=== PATIENT | male | born 1945 | race Caucasian/White ===

== ENCOUNTER 2016-11-21 18:34 | Inpatient (IN) ==
[2016-11-21] MEDS ORDERED: DUONEB (A & A) INH ONE ×2 (18:54→22:07)
[2016-11-21] MEDS ORDERED: ASPIRIN PO STA (19:54)
[2016-11-21 20:30] LABS: BASO% 0.2 % (0.0-0.8); EOS# 0.23 X1000 (0.0-0.7); EOS% 0.9 % (0.0-10.0); HEMATOCRIT 31.8 % (42.0-52.0); HEMOGLOBIN 9.7 g/dL (14.0-18.0); IMM GRAN% 0.4 % (0.0-0.5); LYMPH# 2.13 X1000 (1.2-3.4); MANUAL DIFF NEEDED? NO; MCH 27.2 PG (27-31); MCHC 30.5 g/dL (33-37); MCV 89.3 FL (81-99); MONO# 1.63 X1000 (0.11-0.59); MONO% 6.1 % (1.7-9.3); MPV 10.8 FL (7.4-10.4); NEUT% 84.4 % (42.2-75.2); PLT 272 X1000 (130-400); RBC 3.56 XMIL (4.7-6.1)
[2016-11-21 20:36] LABS: INR 1.08; PROTIME 11.4 Seconds (9.2-11.7); PTT 33.5 Seconds (22.0-36.0)
[2016-11-21 20:40] LABS: AGAP 13; ALBUMIN 3.2 g/dL (3.5-5.0); ALKALINE PHOSPHATASE 106 U/L (32-122); BUN 14 mg/dL (8-22); CALCIUM 8.8 mg/dL (8.8-10.2); CHLORIDE 93 mmol/L (98-107); CK PROFILE 41 U/L (24-204); COSMO 268; GOT 38 U/L (10-34); GPT 32 U/L (10-44); MAGNESIUM 1.9 mg/dL (1.5-2.7); POTASSIUM 4.3 mmol/L (3.5-5.1); SODIUM 134 mmol/L (136-145); TCO2 28 mmol/L (25-35); TOTAL BILIRUBIN 0.38 mg/dL (0.20-1.00); TOTAL PROTEIN 8.1 g/dL (6.3-8.3)
[2016-11-21] MEDS ORDERED: ROCEPHIN 1 GM/NS 1 GM/50 ML IVPB IV ONE (22:03)
[2016-11-21 22:09] LABS: URINE CULTURE NEEDED? NO; URINE MICRO REVIEW NEEDED? NO; URINE SOURCE CLEAN CATCH
[2016-11-21 22:13] LABS: BILIRUBIN URINE NEGATIVE (NEGATIVE); BLOOD URINE NEGATIVE (NEGATIVE); COLOR YELLOW; GLUCOSE URINE NEGATIVE (NEGATIVE); LEUKOCYTES URINE NEGATIVE (NEGATIVE); NITRITE URINE NEGATIVE (NEGATIVE); PROTEIN URINE 30 mg/dL (NEGATIVE); SP GRAVITY URINE 1.016; TURBIDITY URINE CLEAR (CLEAR); UROBILINOGEN URINE NORMAL (NORMAL)
[2016-11-21 22:14] LABS: UR EPITHELIAL CELLS <10 /HPF (<10); URINE BACTERIA NEGATIVE /HPF; URINE RBC <10 /HPF (<10); URINE WBC <10 /HPF (<10)
--- NOTE | 2016-11-21 22:22 | PROVIDER DOCUMENTATION ---
This chart was entered by Marleny Estrada Scribe, acting as scribe for Kwaku Zepeda MD. HPI-Respiratory General - General Chief Complaint: Shortness of Breath Stated Complaint: SOB Time Seen by Provider: 11/21/16 18:59 Source: patient Allergies/Adverse Reactions: Patient Allergies Allergy/AdvReac Type Severity Reaction Status Date / Time ciprofloxacin [From Cipro] AdvReac Severe SEIZURES Verified 11/21/16 18:47 doxycycline AdvReac Severe SEIZURES Verified 11/21/16 18:47 Home Medications: Home Medication List Medication Instructions Recorded Confirmed Last Taken Type Aspirin EC 325 mg PO QAM 03/10/15 11/21/16 09/25/16 History Albuterol [Albuterol Neb] 2.5 mg INH RTQ4H 07/16/15 11/21/16 09/25/16 History PRAVAstatin [Pravachol] 40 mg PO QHS 11/10/15 11/21/16 09/25/16 History Albuterol Sulfate [Proair Hfa] 8.5 gm IH 3-4XDAY PRN PRN #1 04/15/16 11/21/16 Rx [email or web address] Omeprazole [Prilosec] 40 mg PO DAILY@0700 #60 capsule 09/20/16 11/21/16 Rx Tamsulosin [Flomax] 0.4 mg PO DAILY #30 capsule 09/20/16 11/21/16 09/25/16 Rx Amlodipine [Norvasc] 5 mg PO BID #120 tablet 09/30/16 11/21/16 Unknown Rx Hydrocodone/Acetaminophen [[place] 7.5 mg PO Q4HR PRN #20 tablet 09/30/16 Unknown Rx 7.5-325 Tablet] - History of Present Illness-Resp Nature of Presenting Problem: 71 year old M presents to the ED with a cc of chills, cough, and headache x3 days. PT states that he has been taking Tylenol with no relief. PT states that he has some SOB with exertion but is chronic. PT states that he has a hx of CHF. Severity in ED: reports: mild Onset/Duration: reports: 3 days ago Timing: reports: still present Exposure: reports: unknown cause Cough Quality/Degree: reports: moderate, productive cough Current Respiratory Medication Therapy: Initiated see nurses note Associated Symptoms: reports: cough, fever/chills, headache, shortness of breath Similar Symptoms Previously?: Yes Recently seen or treated by another doctor?: No Review of Systems - Adult - REVIEW OF SYSTEMS - ADULT Constitutional: reports: chills. denies: fever Eyes: reports: no symptoms reported Ears, Nose, Mouth & Throat: reports: no symptoms reported Cardiovascular: denies: chest pain, palpitations Respiratory: reports: cough, shortness of breath Gastrointestinal: reports: no symptoms reported Genitourinary: reports: no symptoms reported Musculoskeletal: reports: no symptoms reported Integumentary: reports: no symptoms reported Neurological: reports: headache/migraines. denies: dizziness/vertigo Psychiatric: reports: no symptoms reported Endocrine: reports: no symptoms reported Hematologic/Lymphatic: reports: no symptoms reported Allergic/Immunologic: reports: no symptoms reported All Other Systems: Reviewed and Negative Past History - Adult - PAST MEDICAL HISTORY-ADULT Review of Records: reports: Nursing Assessment Review, Medications Reviewed Major Childhood Illnesses: reports: denies history Cardiovascular: reports: cardiac disease, CAD, CHF, HTN, hyperlipidemia, [place] Respiratory: reports: asthma, COPD (on home o2 saturation), sleep apnea Musculoskeletal: reports: arthritis, chronic pain Neurological: reports: Seizures/Epilepsy Endocrine/Immune: reports: Diabetes Other Conditions: reports: MRSA, psoriasis Additional History: Freq ER visits for COPD; 2L of O2 13/03 dependent - PRIOR SURGERIES/PROCEDURES Surgical/Procedure History: reports: appendectomy, cardiac stent, other - IMMUNIZATION STATUS Childhood Immunizations: See Nurse Assessment Flu Vaccine: See Nurse Assessment - FAMILY HISTORY Family History: reviewed, not pertinent - SOCIAL HISTORY Smoking: chew Provider spent 3-5 mins advising pt. on dangers of tobacco.: Discussed manners to quit use, and f/u contacts for add'l counseling. Substance Use: none/never Alcohol Use Frequency: never Physical Exam-General - PHYSICAL EXAM-ADULT Initial Vital Signs Reviewed: Yes - CONSTITUTIONAL General Appearance: appears well, alert, no apparent distress - EYES Eyes: PERRL/EOMI, pink conjunctivae - RESPIRATORY Respiratory: chest non-tender, rales, wheezing - CARDIOVASCULAR Cardiovascular: normal peripheral pulses, regular rate, rhythm, no edema - GASTROINTESTINAL (ABDOMEN) Abdominal Exam: non tender, soft - SKIN Integumentary: normal color, normal turgor, warm/dry - PSYCHIATRIC Psych/Mental Status: normal mood/affect, normal thought content, normal thought process, oriented x 3 Progress - PLAN OF CARE/RESULTS Progress/Plan/Lab Results: Vital Signs - 8 hr 11/21/16 18:43 11/21/16 19:58 Temperature 97.6 F Pulse Rate 108 H 101 H Respiratory Rate 21 18 Blood Pressure 164/81 O2 Sat by Pulse Oximetry 98 Laboratory Results - last 24 hr 11/21/16 11/21/16 11/21/16 19:00 19:00 19:00 WBC 26.71 H RBC 3.56 L Hgb 9.7 L Hct 31.8 L MCV 89.3 MCH 27.2 MCHC 30.5 L RDW Std Deviation 13.8 Plt Count 272 MPV 10.8 H Immature Gran % (Auto) 0.4 Neut % (Auto) 84.4 H Lymph % (Auto) 8.0 L [place] % (Auto) 6.1 Eos % (Auto) 0.9 Baso % (Auto) 0.2 Immature Gran # (Auto) 0.10 H Neut # (Auto) 22.57 H Lymph # (Auto) 2.13 [place] # (Auto) 1.63 H Eos # (Auto) 0.23 Baso # (Auto) 0.05 PT INR PTT (Actin FS) D-Dimer 0.66 H Sodium 134 L Potassium 4.3 Chloride 93 L Carbon Dioxide 28 Anion Gap 13 BUN 14 Creatinine 0.9 Estimated GFR/1.73 m2 > 60 BUN/Creatinine Ratio 16 Glucose 86 Calculated Osmolality 268 Calcium 8.8 Magnesium 1.9 Total Bilirubin 0.38 AST 38 H ALT 32 Alkaline Phosphatase 106 Creatine Kinase 41 Troponin T Rho-X-Nyvwworqvgk Pept Total Protein 8.1 Albumin 3.2 L Globulin 4.9 Albumin/Globulin Ratio 0.7 Urine Source Urine Color Urine Turbidity Urine pH Ur Specific [place] Urine Protein Ur Glucose (Stick) Ur Ketones (Stick) Urine Blood Urine Nitrite Urine Bilirubin Urobilinogen Dipstick Urine Leukocytes Urine WBC (Auto) Urine RBC (Auto) U Epithel Cells (Auto) Urine Bacteria (Auto) 11/21/16 11/21/16 11/21/16 19:00 19:00 19:00 WBC RBC Hgb Hct MCV MCH MCHC RDW Std Deviation Plt Count MPV Immature Gran % (Auto) Neut % (Auto) Lymph % (Auto) [place] % (Auto) Eos % (Auto) Baso % (Auto) Immature Gran # (Auto) Neut # (Auto) Lymph # (Auto) [place] # (Auto) Eos # (Auto) Baso # (Auto) PT 11.4 INR 1.08 PTT (Actin FS) 33.5 D-Dimer Sodium Potassium Chloride Carbon Dioxide Anion Gap BUN Creatinine Estimated GFR/1.73 m2 BUN/Creatinine Ratio Glucose Calculated Osmolality Calcium Magnesium Total Bilirubin AST ALT Alkaline Phosphatase Creatine Kinase Troponin T < 0.010 Gvn-Z-Fwwthlqiryg Pept 956 H Total Protein Albumin Globulin Albumin/Globulin Ratio Urine Source Urine Color Urine Turbidity Urine pH Ur Specific [place] Urine Protein Ur Glucose (Stick) Ur Ketones (Stick) Urine Blood Urine Nitrite Urine Bilirubin Urobilinogen Dipstick Urine Leukocytes Urine WBC (Auto) Urine RBC (Auto) U Epithel Cells (Auto) Urine Bacteria (Auto) 11/21/16 22:00 WBC RBC Hgb Hct MCV MCH MCHC RDW Std Deviation Plt Count MPV Immature Gran % (Auto) Neut % (Auto) Lymph % (Auto) [place] % (Auto) Eos % (Auto) Baso % (Auto) Immature Gran # (Auto) Neut # (Auto) Lymph # (Auto) [place] # (Auto) Eos # (Auto) Baso # (Auto) PT INR PTT (Actin FS) D-Dimer Sodium Potassium Chloride Carbon Dioxide Anion Gap BUN Creatinine Estimated GFR/1.73 m2 BUN/Creatinine Ratio Glucose Calculated Osmolality Calcium Magnesium Total Bilirubin AST ALT Alkaline Phosphatase Creatine Kinase Troponin T Miy-H-Barytqjzkpl Pept Total Protein Albumin Globulin Albumin/Globulin Ratio Urine Source CLEAN CATCH Urine Color YELLOW Urine Turbidity CLEAR Urine pH 6.0 Ur Specific [place] 1.016 Urine Protein 30 A Ur Glucose (Stick) NEGATIVE Ur Ketones (Stick) NEGATIVE Urine Blood NEGATIVE Urine Nitrite NEGATIVE Urine Bilirubin NEGATIVE Urobilinogen Dipstick NORMAL Urine Leukocytes NEGATIVE Urine WBC (Auto) <10 Urine RBC (Auto) <10 U Epithel Cells (Auto) <10 Urine Bacteria (Auto) NEGATIVE Orders Category Date Time Status Oxygen Therapy- ED Nursing DIRECTED Care 11/21/16 18:54 Active Saline Loc DIRECTED Care 11/21/16 18:54 Active ANGIOGRAM/PULMONARY ARTERIES [CT] Stat Exams 11/21/16 22:15 Ordered CHEST-PORTABLE [RAD] Stat Exams 11/21/16 20:19 Taken BLOOD CULTURE [BLDCUL] Stat Lab 11/21/16 22:02 Uncollected CBC WITH ELECTRONIC DIFF [HEME] Stat Lab 11/21/16 19:00 Completed CK PROFILE [SP CHEM] Stat Lab 11/21/16 19:00 Completed COMPREHENSIVE METABOLIC PANEL [CHEM] Stat Lab 11/21/16 19:00 Completed D-DIMER [CHEM] Stat Lab 11/21/16 19:00 Completed MAGNESIUM [CHEM] Stat Lab 11/21/16 19:00 Completed PRO B-NATRIURETIC PEPTIDE Stat Lab 11/21/16 19:00 Completed PROTIME WITH INR [COAG] Stat Lab 11/21/16 19:00 Completed PTT [COAG] Stat Lab 11/21/16 19:00 Completed TROPONIN T Stat Lab 11/21/16 19:00 Completed UA NIMS W/REFLEX CULT [URINALYSIS] Stat Lab 11/21/16 22:00 Completed Albuterol 2.5MG/Ipratrop 0.5MG [Duoneb (A & A)] Med 11/21/16 18:54 Discontinued 3 ml INH NOW ONE Albuterol 2.5MG/Ipratrop 0.5MG [Duoneb (A & A)] Med 11/21/16 22:07 Discontinued 3 ml INH NOW ONE CefTRIAXONE 1 GM/NS [Rocephin 1 gm/Ns] Med 11/21/16 22:03 Active 1 gm in 50 ml IV NOW Aerosol Treatments Routine Oth 11/21/16 18:55 Completed Aerosol Treatments Routine Oth 11/21/16 22:08 Active Aerosol Treatments Stat Oth 11/21/16 18:54 Completed Aerosol Treatments Stat Oth 11/21/16 18:55 Completed Aerosol Treatments Stat Oth 11/21/16 22:08 Active Pulse Oximetry Stat Oth 11/21/16 18:54 Active EKG [EKG] Stat Ther 11/21/16 18:40 Ordered Result Diagrams: 11/21/16 19:00 11/21/16 19:00 - EKG 1 Time of EKG reading by physician:: 18:43 EKG Read and Signed by:: Kwaku Zepeda EKG Interpretation (*Must complete 3 of following elements*): Abnormal Rate: 108 Rhythm: sinus tachycardia QRS: LVH - XRAY 1 XRAY Study: Chest Impression: Abnormal XRAY Interpretation: diffuse bronchiole thickening worsening on right:Dr. Zepeda(ER MD) - CONSULTS/PCP/HOSPITALIST Notification #1 *Consult/PCP/Hospitalist*: Dr. Fournier(hospitalist) Time Discussed: 22:12 Consult Disposition: Will see in ED, Admit Departure - Departure Time of Disposition Decision: 22:20 DIAGNOSIS: Bronchitis, SOB (shortness of breath) Leukocytosis (leucocytosis) Qualifiers: Leukocytosis type: bandemia Qualified Code(s): D72.825 - Bandemia Disposition: ADMITTED INPATIENT 09 Certified Medical Emergency: Emergent Condition: Fair Referrals and Follow-Ups: None,PCP [Primary Care Provider] - This chart was documented by the indicated scribe, (Marleny Estrada Scribe) and accurately reflects the services I performed and decisions made by me, Kwaku Zepeda MD, as attested by the provider's signature.
--- NOTE | 2016-11-21 23:52 | HISTORY AND PHYSICAL ---
CHIEF COMPLAINT: Chills, shaking and shortness of breath times several days. HISTORY OF PRESENTING ILLNESS: A 74-year-old male with a history of COPD on home oxygen, and hypertension, who presented to the emergency department with several days history of having some chills and shaking symptoms. He states that he was short of breath more than usual at this time, and subsequently had come to the emergency department. In the ER, he was evaluated. He was still somewhat dyspneic. He was put on supplemental oxygen. He had some in improvement after getting some nebulizer treatments, however, due to his presenting symptoms, it was thought that he would need hospitalization for further management. At the time of my examination, he had denied any headache, nausea, vomiting, diarrhea, chest pain, hemoptysis, melena, but complained of shortness of breath and having chills. PAST MEDICAL HISTORY: Includes COPD on 4 L of home oxygen and hypertension. PAST SURGICAL HISTORY: None. ALLERGIES: Doxycycline and Cipro. CURRENT MEDICATIONS: Listed in the MAR. SOCIAL HISTORY: He is a former smoker. Denies any history of alcohol or illicit drug use. FAMILY HISTORY: No history of coronary disease. REVIEW OF SYSTEMS: Twelve point systems is as in HPI. Other systems negative. PHYSICAL EXAMINATION: GENERAL: Cooperative, friendly male. He is resting more comfortably now. VITAL SIGNS: Temperature 97.6, pulse 108, respirations 21, blood pressure 164/81. HEENT: Atraumatic, normocephalic. Extraocular movements intact. PERRLA. NECK: No masses. CHEST: Rhonchi. CARDIOVASCULAR: Regular rate and rhythm. ABDOMEN: Soft. Positive bowel sounds. EXTREMITIES: No edema. NEURO: He is awake, alert, oriented x3. : No bladder distention. SKIN: Warm. LABORATORIES AND STUDIES: WBCs 26.71, hemoglobin 9.7, hematocrit 31.8, platelets 272,000. Sodium 134, potassium 4.3, chloride 93, CO2 of 28, BUN is 14, creatinine 0.9, glucose is 86. UA is leukocyte negative. ASSESSMENT: This is a 71-year-old male with a history of COPD on home oxygen and hypertension, who had presented to the emergency department with several days history of having shortness of breath and chills. It was suspected that he had infiltrates on chest x-ray, as per ER physician. Due to symptoms with elevated white count and having chills, it was thought that he would need hospitalization for further management. 1. Acute COPD exacerbation. 2. Suspected pneumonia. 3. Leukocytosis. 4. Hypertension. PLAN: 1. We will admit patient to medical floor with telemetry. 2. We will continue with DuoNebs. We will add Solu-Medrol. 3. We will check blood cultures, start patient on IV antibiotics. 4. We will monitor laboratories. 5. We will monitor blood pressure. Resume antihypertensive agents. 6. We will put patient on DVT prophylaxis with SCDs. 7. We will continue to follow and reassess. cc: Trevin Fournier MD
[2016-11-22] MEDS: DUONEB (A & A) INH SCH ×7 (01:25→22:54)
[2016-11-22] MEDS: ZITHROMAX 500 MG/NS 500 MG/250 ML IVPB IV SCH (02:36)
--- NOTE | 2016-11-22 05:35 | EKG Report ---
Test Performed on : 11/21/2016 6:43:32 PM Test Reason : CP Blood Pressure : / mmHG Vent. Rate : 108 BPM Atrial Rate : 108 BPM P-R Int : 194 ms QRS Dur : 100 ms QT Int : 336 ms P-R-T Axes : 076 053 088 degrees QTc Int : 450 ms Sinus tachycardia. Left ventricular hypertrophy with repolarization abnormality Inferior infarct (cited on or before 14-AUG-2016) Abnormal ECG When compared with ECG of 05-SEP-2016 14:59, premature ventricular complexes. are no longer present ST now depressed in Lateral leads T wave inversion now evident in Lateral leads Unconfirmed Result
[2016-11-22] MEDS: PRILOSEC PO SCH (06:01)
[2016-11-22 06:35] LABS: BASO% 0.2 % (0.0-0.8); EOS# 0.12 X1000 (0.0-0.7); EOS% 0.6 % (0.0-10.0); HEMATOCRIT 30.6 % (42.0-52.0); HEMOGLOBIN 9.4 g/dL (14.0-18.0); IMM GRAN# 0.06 X1000 (0.0-0.04); IMM GRAN% 0.3 % (0.0-0.5); LYMPH# 1.74 X1000 (1.2-3.4); MANUAL DIFF NEEDED? YES; MCH 27.5 PG (27-31); MCHC 30.7 g/dL (33-37); MCV 89.5 FL (81-99); MONO# 1.14 X1000 (0.11-0.59); MONO% 5.2 % (1.7-9.3); MPV 10.2 FL (7.4-10.4); NEUT% 85.7 % (42.2-75.2); PLT 262 X1000 (130-400); RBC 3.42 XMIL (4.7-6.1)
[2016-11-22 06:59] LABS: AGAP 10; BUN 12 mg/dL (8-22); CALCIUM 8.7 mg/dL (8.8-10.2); CHLORIDE 96 mmol/L (98-107); COSMO 269; POTASSIUM 3.7 mmol/L (3.5-5.1); SODIUM 135 mmol/L (136-145); TCO2 29 mmol/L (25-35)
[2016-11-22 07:26] LABS: LYMPHS 6 % (21-51); MONO 4 % (1-9)
--- NOTE | 2016-11-22 07:55 | Diag Imaging Result Document ---
PROCEDURE NAME: CHEST-PORTABLE - 11/21/2016 FRONTAL RADIOGRAPH OF THE CHEST, 2 VIEWS: COMPARISON: 09/26/2016. FINDINGS: The patient's right PICC line has been removed during the interval. There are stable COPD changes. There are stable patchy fibrotic changes. No definite new consolidation can be identified by plain radiograph. Cardiac silhouette is stable. IMPRESSION: Stable COPD changes and patchy fibrotic changes. No definite acute pathology by plain radiograph.
--- NOTE | 2016-11-22 08:21 | Diag Imaging Result Document ---
PROCEDURE NAME: ANGIOGRAM/PULMONARY ARTERIES - 11/21/2016 CT ANGIOGRAM OF PULMONARY ARTERIES WITH CONTRAST: Exam performed with intravenous contrast. A dose-reduction protocol was used. Axial and reformatted coronal images are obtained. COMPARISON: 05/09/2016. FINDINGS: There are no filling defects identified in the pulmonary arteries. There is no indication of aortic dissection. There are severe COPD/emphysematous changes. There is possibly mild bronchiectasis at the right base. There are scattered small patchy opacities which may relate to COPD exacerbation with mild bronchopneumonia. There is no pleural effusion or pneumothorax identified. There is a 1 cm nodular opacity or scar at the posterior right upper lobe which is stable. There are small and borderline mediastinal lymph nodes, some of which are slightly more prominent compared to previous exam, which may be reactive. IMPRESSION: 1. No evidence of pulmonary embolism. 2. Severe COPD/emphysematous changes. Patchy small infiltrates which may relate to COPD exacerbation with mild bronchopneumonia. The on-call radiologist provided preliminary results at 11:13 p.m. on 2016. MTDCheri
[2016-11-22] MEDS: ASPIRIN EC PO SCH (08:51)
[2016-11-22] MEDS: NORVASC PO SCH ×2 (08:51→20:52)
[2016-11-22] MEDS: FLOMAX PO SCH (08:51)
[2016-11-22] MEDS ORDERED: NORCO-7.5 PO PRN (11:48)
--- NOTE | 2016-11-22 12:08 | PROGRESS NOTE ---
DATE: 11/22/2016 SUBJECTIVE: The patient has no focal complaints. OBJECTIVE: Vital Signs: Blood pressure 115/56, heart rate of 81, respiratory rate of 22, temperature 97.7 degrees, satting 100% on 4 L. Cardiovascular: Regular rate and rhythm. Pulmonary: Bilateral breath sounds. Clear to auscultation. GI: Soft, nontender, nondistended. Bowel sounds are positive. Extremity exam: No clubbing or cyanosis. LABORATORY DATA: White count is down to 21. The rest of the electrolytes look okay. CTA shows bronchopneumonia in his right base, possibly bronchiectasis. PROBLEM LIST: 1. Bronchopneumonia, bronchiectasis. We will continue empiric antibiotics. Clinically, he has improved. Continue breathing treatments. Pulmonary toilet. 2. Chronic obstructive pulmonary disease exacerbation. Continue the same. He does not have a large amount of wheezing, so we have not maintained on steroids, although this may be needed additionally if he has not improved. 3. Hypertension. Continue regular medications. 4. Dyslipidemia. Continue regular medications. DISPOSITION: Pending his clinical course. cc: Gelacio Duque MD
[2016-11-22] MEDS: LOVENOX SUBQ SCH (13:57)
[2016-11-22] MEDS: NORCO-7.5 PO PRN ×3 (15:28→23:00)
[2016-11-22] MEDS: PRAVACHOL PO SCH (20:52)
[2016-11-22] MEDS: ROCEPHIN 1 GM/NS 1 GM/50 ML IVPB IV SCH (22:37)
[2016-11-23] MEDS: ZITHROMAX 500 MG/NS 500 MG/250 ML IVPB IV SCH (02:05)
[2016-11-23] MEDS: NORCO-7.5 PO PRN ×5 (02:46→23:32)
[2016-11-23] MEDS: DUONEB (A & A) INH SCH ×6 (03:23→23:10)
[2016-11-23] MEDS: PRILOSEC PO SCH (06:11)
[2016-11-23 07:56] LABS: HEMATOCRIT 27.1 % (42.0-52.0); HEMOGLOBIN 8.3 g/dL (14.0-18.0); MCH 27.9 PG (27-31); MCHC 30.6 g/dL (33-37); MCV 91.2 FL (81-99); MPV 10.2 FL (7.4-10.4); RBC 2.97 XMIL (4.7-6.1)
[2016-11-23 08:01] LABS: AGAP 10; BUN 18 mg/dL (8-22); CALCIUM 8.6 mg/dL (8.8-10.2); CHLORIDE 96 mmol/L (98-107); COSMO 269; POTASSIUM 3.6 mmol/L (3.5-5.1); SODIUM 134 mmol/L (136-145); TCO2 28 mmol/L (25-35)
[2016-11-23] MEDS: FLOMAX PO SCH (09:10)
[2016-11-23] MEDS: ASPIRIN EC PO SCH (09:10)
[2016-11-23] MEDS: NORVASC PO SCH ×2 (09:10→20:28)
[2016-11-23] MEDS: LOVENOX SUBQ SCH (12:20)
[2016-11-23] MEDS ORDERED: DUONEB (A & A) INH PRN (14:52)
--- NOTE | 2016-11-23 15:21 | PROGRESS NOTE ---
DATE: 11/23/2016 SUBJECTIVE: The patient has no focal complaints. Breathing is somewhat improved. OBJECTIVE: Vital Signs: Blood pressure 123/57, heart rate of 81, respiratory rate 16, temperature 97.5 degrees. Cardiovascular: Regular rate and rhythm. Pulmonary: Bilateral breath sounds with wheezing. GI: Soft, nontender, nondistended. Bowel sounds are positive. LABORATORY DATA: Normal CBC. White count is down, hemoglobin and hematocrit 8 and 27. PROBLEM LIST: 1. Chronic obstructive pulmonary disease exacerbation. We will continue breathing treatments. He has not really on any steroids. He does have a little bit of wheezing on exam. We will continue to monitor. 2. Pneumonia. He is on Rocephin and azithromycin, day 2 of both of those. 3. Hypertension. Appears to be stable on current medications. 4. Dyslipidemia. Continue regular medications. DISPOSITION: Difficult social situation. Home health is not an option. Apparently there are barriers to home health workers to be able to help him. Home health nursing because of guard dog in the house and possible drug abuse in the house, but the patient's states he does not have a home to go back to and requesting looking into some rehab options. He was just in rehab and essentially just came right back in unfortunately. In any case, clinically the patient is stable. We will look into discharge planning and follow. cc: Gelacio Duque MD
--- NOTE | 2016-11-23 17:13 | PALLIATIVE CARE CONSULTATION ---
DATE: 11/23/2016 REQUESTING PHYSICIAN: Karina Deleon. REASON FOR CONSULTATION: Goals of care. HISTORY OF PRESENT ILLNESS: This is a 71-year-old, male with a past medical history of COPD requiring home O2, and hypertension. He was most recently admitted on 11/22/2016 after presenting to the emergency department with complaints of progressive shortness of breath, cough and chills. Mr. Byrne has had multiple inpatient admissions for COPD exacerbation within the last year. His is currently at bedside. Mr. Byrne also admits to a roughly 50 pound weight loss within the last 6 months. However he states that his appetite is good. He states that functionally he feels like he is getting weaker. He states he has to take multiple breaks when performing his activities of daily living, but he is able to continue to do perform those independently. Currently Mr. Byrne continues to complain of shortness of breath. He states it has improved since admission. He complains of pain that he describes as arthritis. He denies nausea, anxiety or depression. Currently he and his state that one of their major concerns is that they are now homeless. They have been living in a local motel, but state that the time that they have paid for there is now up. They also state that they do not have a vehicle, and it is unsure where they will go once they are discharged from the hospital. The palliative care team was consulted to assist with goals of care. REVIEW OF SYSTEMS: A 12 point review of systems has been conducted and otherwise negative except as mentioned in the HPI. PAST MEDICAL HISTORY: 1. COPD requiring home O2. 2. Hypertension. SURGICAL HISTORY: None. SOCIAL HISTORY: Prior to this admission Mr. Byrne was living in a local motel, which he is now unable to go back to. Alcohol and drug use have been denied. He does admit to use of smokeless tobacco. He is and has 1 son whom he has not seen since he was an . FAMILY HISTORY: None pertinent. PHYSICAL EXAMINATION: General: This is a 71-year-old, male who does not appear to be in any acute distress. HEENT: Atraumatic, normocephalic. Neck: Trachea is midline. Cardiovascular: Regular rate and rhythm. Pulmonary: Respirations are nonlabored. Lung: Sounds reveal scattered wheeze. Abdomen: Soft. Bowel sounds are active. Extremities: Pulses are palpable. No edema noted. Neuro: Mr. Byrne is awake and alert. He is oriented to person, place and time. Skin: Warm and dry. IMPRESSION: This is a 71-year-old, male with a past medical history as listed above in the HPI. The palliative care team was consulted to assist with goals of care. Mr. Byrne has had multiple admissions for COPD exacerbations within the last 6 months. I do feel like Mr. Byrne would benefit from some home services. However that has been complicated due to their change in living situation. I discussed the power of attorney lawyer and advance directive with Mr. Byrne's . He does not have either document. He does wish to be a full code. It does appear that Mr. Byrne's Palliative Performance Scale is 70%. The palliative care team will continue to follow as needed. Thank you for this consultation. Dictated by QING Cervantes for Shantanu Rodriguez MD cc: QING Cervantes MD
[2016-11-23] MEDS ORDERED: ZOFRAN IV PRN (18:59)
[2016-11-23] MEDS: PRAVACHOL PO SCH (20:28)
[2016-11-23] MEDS: ROCEPHIN 1 GM/NS 1 GM/50 ML IVPB IV SCH (21:04)
[2016-11-24] MEDS: ZITHROMAX 500 MG/NS 500 MG/250 ML IVPB IV SCH (01:24)
[2016-11-24] MEDS: DUONEB (A & A) INH SCH ×3 (03:07→11:24)
[2016-11-24 05:33] VITALS: BP 126/63
[2016-11-24] MEDS: NORCO-7.5 PO PRN (06:11)
[2016-11-24] MEDS: PRILOSEC PO SCH (06:12)
[2016-11-24 07:22] LABS: HEMATOCRIT 29.6 % (42.0-52.0); MCH 27.4 PG (27-31); MCHC 30.4 g/dL (33-37); MCV 90.2 FL (81-99); RBC 3.28 XMIL (4.7-6.1)
[2016-11-24 07:35] LABS: AGAP 12; BUN 16 mg/dL (8-22); CHLORIDE 96 mmol/L (98-107); COSMO 274; POTASSIUM 4.1 mmol/L (3.5-5.1); SODIUM 137 mmol/L (136-145); TCO2 29 mmol/L (25-35)
[2016-11-24] MEDS: ASPIRIN EC PO SCH (09:06)
[2016-11-24] MEDS: FLOMAX PO SCH (09:06)
[2016-11-24] MEDS: NORVASC PO SCH (09:06)
[2016-11-24] MEDS: LOVENOX SUBQ SCH (11:34)
--- NOTE | 2016-11-24 11:42 | DISCHARGE SUMMARY ---
ADMISSION DATE: 11/22/2016 DISCHARGE DATE: CONSULTATIONS: None. PERTINENT PROCEDURES: Pulmonary arteriogram showed no evidence of pulmonary embolus, severe chronic obstructive pulmonary disease, emphysematous changes. Patient has small infiltrates which may relate to chronic obstructive pulmonary disease exacerbation with mild bronchopneumonia. CONSULTATIONS: Lisa Steele with palliative care. DISCHARGE DIAGNOSES: 1. Acute chronic obstructive pulmonary disease exacerbation, stable. Continue on home O2, as well as bronchodilators. 2. Pneumonia. Continue with p.o. antibiotics. 3. Hypertension. Stable. 4. Dyslipidemia. Continue patient's statin. HOSPITAL COURSE: Briefly, Mr. Byrne is a 74-year-old male, well known to our service. Past medical history includes chronic obstructive pulmonary disease on 4 L home O2, hypertension, hyperlipidemia, who presented to the emergency department with several days history of having chills and shaking symptom, shortness of breath that was more than his usual. He was evaluated in the emergency department . He was found to be somewhat dyspneic. He had some improvement after nebulizer treatments; however, due to his presenting symptoms the patient was admitted for chronic obstructive pulmonary disease exacerbation as well as pneumonia. He was admitted to the medical telemetry floor. Continued on bronchodilators, as well as IV steroids, IV antibiotics, and supplemental O2. Due to the patient's history, as well as several admissions over the last year, palliative services was consulted for goals of care. [facility] was also consulted to help with placement, due to the patient complaining of generalized weakness, as well as weight loss. Upon further investigation by him, as well as his , had been living in a local motel, but at this time what they have paid up for is now. They do not have a vehicle. They were unsure as to where they will go once discharged from the hospital. Again, due to the patient's weakness, PT was involved and they do recommend rehab. The patient has been accepted back to [facility], for which he had just came upon his last admission. The patient does not use cigarettes, but he still uses smokeless tobacco. We did feel that he would benefit from in-home services; however, that has been complicated due to their change in living situation and again the patient is appropriate for rehab and he will be discharged to [facility] today. VITAL SIGNS: Vital signs at time of discharge, temperature is 97.9 degrees, heart rate 79, respirations 20, blood pressure is 126/63. O2 is 98% on 3 L nasal cannula. DISCHARGE DIET: Healthy heart. DISCHARGE MEDICATIONS: 1. Albuterol nebulizer 2.5 mg inhaled q.4 hours. 2. ProAir 8.5 g inhaled 3-4 times a day p.r.n. for shortness of breath. 3. Norvasc 5 mg p.o. b.i.d. 4. Aspirin 325 mg p.o. q.a.m. 5. [place]um 7.5/325 p.o. q.4 hours p.r.n. pain. 6. Prilosec 40 mg p.o. daily. 7. Pravachol 40 mg p.o. at bedtime. 8. Flomax 0.4 mg p.o. daily. 9. Medrol dose pack. FOLLOWUP: The patient is being discharged to [facility]. The patient continues to take a full course of antibiotics, as well as his Medrol dose pack, as well as continuing his home medications and continuing on his supplemental O2. The patient can return to the emergency department for any worsening of symptoms. DISCHARGE TIME: Thirty-minutes. Dictated by QING Oliveros for David Bhatia MD cc: David Bhatia MD
== END 2016-11-24 13:41 ==
LOC: ED 18:34 → 3N 11-22 00:37 → SUATTDRO 11-22 00:37
PROVIDERS: ATTEND Emergency Medicine

== ENCOUNTER 2016-12-20 15:10 | Inpatient (IN) ==
[2016-12-20] MEDS ORDERED: ASPIRIN PO STA (15:33)
[2016-12-20 15:51] LABS: MANUAL DIFF NEEDED? NO
[2016-12-20 15:54] LABS: BASO% 0.4 % (0.0-0.8); EOS# 0.76 X1000 (0.0-0.7); EOS% 5.7 % (0.0-10.0); HEMATOCRIT 35.4 % (42.0-52.0); HEMOGLOBIN 10.6 g/dL (14.0-18.0); IMM GRAN# 0.03 X1000 (0.0-0.04); IMM GRAN% 0.2 % (0.0-0.5); LYMPH# 1.63 X1000 (1.2-3.4); LYMPH% 12.2 % (20.5-51.1); MCH 26.8 PG (27-31); MCHC 29.9 g/dL (33-37); MCV 89.6 FL (81-99); MONO# 1.52 X1000 (0.11-0.59); MONO% 11.3 % (1.7-9.3); MPV 10.2 FL (7.4-10.4); NEUT% 70.2 % (42.2-75.2); PLT 359 X1000 (130-400); RBC 3.95 XMIL (4.7-6.1)
[2016-12-20 16:06] LABS: INR 1.04; PTT 30.6 Seconds (22.0-36.0)
[2016-12-20 16:11] LABS: AGAP 8; ALBUMIN 3.5 g/dL (3.5-5.0); ALKALINE PHOSPHATASE 127 U/L (32-122); BUN 23 mg/dL (8-22); CALCIUM 9.2 mg/dL (8.8-10.2); CHLORIDE 96 mmol/L (98-107); CK PROFILE 26 U/L (24-204); COSMO 282; GOT 83 U/L (10-34); GPT 65 U/L (10-44); MAGNESIUM 2.2 mg/dL (1.5-2.7); POTASSIUM 3.5 mmol/L (3.5-5.1); SODIUM 139 mmol/L (136-145); TCO2 35 mmol/L (25-35); TOTAL BILIRUBIN 0.21 mg/dL (0.20-1.00); TOTAL PROTEIN 8.3 g/dL (6.3-8.3)
--- NOTE | 2016-12-20 16:48 | Diag Imaging Result Document ---
PROCEDURE NAME: CHEST-2 VIEWS - 12/20/2016 CHEST 2 VIEWS: COMPARISON: 12/15/2016. FINDINGS: Heart size is normal. There are COPD changes with hyperexpanded lungs. There are mild infiltrates or scarring at the bilateral bases which appear grossly stable. There is a possible tiny right pleural effusion. There is no evidence of pneumothorax. IMPRESSION: COPD changes with hyperexpanded lungs. Stable mild basilar infiltrates or scarring. Possible tiny right pleural effusion. No evidence of pneumothorax.
[2016-12-20] MEDS ORDERED: DUONEB (A & A) INH ONE (19:27)
[2016-12-20] MEDS ORDERED: DECADRON IV ONE (19:27)
[2016-12-20] MEDS ORDERED: ROCEPHIN 1 GM/NS 1 GM/50 ML IVPB IV ONE (19:28)
[2016-12-20] MEDS ORDERED: LASIX IV ONE (19:38)
[2016-12-20 21:07] LABS: ALLEN TEST YES; BE 7.8 mmoll (-3.0-3.0); BLOOD TYPE ARTERIAL; DRAW SITE R BRACHIAL; METHB 1.4 % (0.0-1.5); O2(CT) 12.9 mL/dL (15.0-23.0); PO2(98.6) 84 mmHg (60-100); SAMPLE BLOOD; SAO2 98.5 % (95.0-100.0); THB 9.5 g/dL (11.5-17.4)
[2016-12-20 21:09] LABS: MODALITY CANNULA; PCO2(98.6) 73 mmHg (35-45)
[2016-12-20] MEDS ORDERED: PRAVACHOL PO SCH (21:45)
[2016-12-20] MEDS ORDERED: DUONEB (A & A) INH PRN (21:45)
[2016-12-20] MEDS ORDERED: ROCEPHIN 1 GM/NS 1 GM/50 ML IVPB IV SCH (21:45)
[2016-12-20] MEDS ORDERED: ZOFRAN IV PRN (21:45)
[2016-12-20] MEDS: NORCO-7.5 PO PRN (22:02)
[2016-12-20] MEDS: NS 1,000 ML IV SCH (22:37)
--- NOTE | 2016-12-20 22:37 | Diag Imaging Result Document ---
PROCEDURE NAME: ANGIOGRAM/PULMONARY ARTERIES - 12/20/2016 STUDY: CT chest with intravenous contrast. PROTOCOL: Dose reduction protocol. COMPARISON: Compared to 11/21/2016. There is normal opacification of the pulmonary arteries and their major branches. No thoracic aortic aneurysm or dissection. No cardiomegaly. No pleural effusions. There are small mediastinal and hilar lymph nodes similar to the prior exam. The patient has severe emphysema. There are nodular patchy areas of increased interstitial markings in the lungs fairly similar to the prior exam and believed to be fibrosis, 9 mm posteriorly in the right lung on image 66 is unchanged. Limited images through the upper abdomen reveal a 1.3 cm cystic lesion in the body/tail of the pancreas. This area was not included on the prior exam. IMPRESSION: No pulmonary emboli, otherwise stable CT of the chest. A preliminary report was given at 9:25 p.m.
[2016-12-20] MEDS: SOLU-MEDROL IV SCH (22:38)
[2016-12-20] MEDS: DUONEB (A & A) INH SCH (22:55)
[2016-12-21] MEDS: DUONEB (A & A) INH SCH ×6 (04:19→22:15)
[2016-12-21 04:33] LABS: ALLEN TEST YES; BE 9.9 mmoll (-3.0-3.0); BLOOD TYPE ARTERIAL; DRAW SITE R RADIAL; METHB 1.6 % (0.0-1.5); O2(CT) 12.6 mL/dL (15.0-23.0); PO2(98.6) 135 mmHg (60-100); SAMPLE BLOOD; THB 9.1 g/dL (11.5-17.4); pH(98.6) 7.26 (7.35-7.45)
[2016-12-21 04:34] LABS: MODALITY CANNULA; PCO2(98.6) 87 mmHg (35-45)
--- NOTE | 2016-12-21 05:22 | EKG Report ---
Test Performed on : 12/20/2016 3:29:33 PM Test Reason : Re-Ordered/SOB Blood Pressure : / mmHG Vent. Rate : 074 BPM Atrial Rate : 074 BPM P-R Int : 172 ms QRS Dur : 104 ms QT Int : 374 ms P-R-T Axes : 081 061 063 degrees QTc Int : 415 ms Sinus rhythm. with marked sinus arrhythmia. Left ventricular hypertrophy with repolarization abnormality Possible Inferior infarct , age undetermined Abnormal ECG No previous ECGs available Unconfirmed Result
[2016-12-21] MEDS ORDERED: SPIRIVA INH SCH (07:30)
[2016-12-21 07:48] LABS: CALCIUM 8.8 mg/dL (8.8-10.2)
[2016-12-21 07:58] LABS: HEMATOCRIT 30.8 % (42.0-52.0); IMM GRAN# 0.02 X1000 (0.0-0.04); IMM GRAN% 0.2 % (0.0-0.5); LYMPH# 0.52 X1000 (1.2-3.4); MANUAL DIFF NEEDED? YES; MCH 26.2 PG (27-31); MCHC 29.2 g/dL (33-37); MCV 89.5 FL (81-99); MONO# 0.07 X1000 (0.11-0.59); MONO% 0.8 % (1.7-9.3); MPV 10.2 FL (7.4-10.4); PLT 289 X1000 (130-400); RBC 3.44 XMIL (4.7-6.1)
[2016-12-21 08:44] LABS: BANDS 2 % (0-1); LYMPHS 8 % (21-51); MONO 2 % (1-9)
[2016-12-21 08:45] LABS: HYPOCHROM 2+
[2016-12-21] MEDS ORDERED: PRILOSEC PO SCH (09:00)
[2016-12-21] MEDS: SOLU-MEDROL IV SCH ×2 (09:01→21:24)
[2016-12-21] MEDS: NORCO-7.5 PO PRN (09:01)
--- NOTE | 2016-12-21 11:02 | Diag Imaging Result Document ---
PROCEDURE NAME: CHEST-2 VIEWS - 12/21/2016 FRONTAL AND LATERAL CHEST, THREE VIEWS: COMPARISON: Compared to 12/20/2016. FINDINGS: The lungs are hyperexpanded. There is an increased AP diameter to the chest. The heart is not enlarged. The pulmonary vessels are small. Small infiltrates remain in the left base. Overall these are slightly less pronounced than on the prior exam. IMPRESSION: 1. Severe emphysema. 2. Improvement in the left infiltrates.
[2016-12-21] MEDS ORDERED: TESSALON PO PRN (11:38)
--- NOTE | 2016-12-21 12:26 | PROGRESS NOTE ---
DATE: 12/21/2016 SUBJECTIVE: Mr. Juan Byrne was admitted last night with shortness of breath. Chest x-ray this morning showed severe emphysema, improvement in his left infiltrates. He had a pulmonary arteriogram done yesterday, which showed no pulmonary emboli, otherwise stable, and stable looking CT of the chest and lung couch. OBJECTIVE: General: On exam today, he was getting a breathing treatment. He still feels a little short of breath. Vital Signs: Temperature 96.6 degrees, pulse 60, respirations 20, blood pressure 114/48. HEENT and Neck: Pupils are equal. CVP is less than 6 cm. I do not see any distended neck veins. Lungs: With decreased breath sounds at both bases. Weight: His weight was recorded as 165 and 153 yesterday and 153 this morning. Abdomen: Soft. Skin: Warm and dry. Urine Output: Almost 2 liters, I believe. DIAGNOSTIC DATA: White count 8730, down from 13,000 yesterday; hematocrit was 30, which is stable; platelet count 289,000. Chemistry: Sodium 137, potassium 4, chloride 94, BUN 23, creatinine 1.2. Blood sugars are 147, 223, and 204. ASSESSMENT AND PLAN: 1. Chronic obstructive pulmonary disease with chronic obstructive pulmonary disease exacerbation. Treating for bronchial pneumonia. I do not see any definite sign of infiltrate radiographically. Continue antibiotics and bronchodilators and intravenous Solu-Medrol. 2. Hypertension. Blood pressures appear well controlled. 3. Review of his orders, he is on ceftriaxone 1 gram, I believe, daily; methylprednisone 40 mg intravenously b.i.d., normal saline at 75 mL an hour, albuterol treatments. I will put him on Advair as well for some inhaled bronchial steroid and supplementary O2. Looking back, he has had an echocardiogram done on 07/12/2016 and he has an ejection fraction of 50% to 55%, inferior wall hypokinesis, trace pulmonary regurgitation. His pulmonary pressures, I think, were unremarkable. No aortic stenosis. cc: David Bhatia MD
--- NOTE | 2016-12-21 13:18 | ECHO REPORT ---
ORDER DATE: 12/21/2016 MEASUREMENTS: Left ventricular end-diastolic diameter 5.4, end-systolic diameter 3.4, posterior wall thickness 1.4, septal thickness 1.0, left atrium 4.2, aortic root 3.3. SUMMARY: 1. Fair quality study. 2. Aortic valve is trileaflet and opens normally on 2-dimensional images, with peak gradient less than 10 mmHg. There is trace aortic regurgitation. Mitral, tricuspid, and pulmonic valves are without structural abnormality. Aortic root is normal in size. 3. Normal left ventricular dimensions suggested. Estimated left ventricular ejection fraction appears to be at least 65%. No regional wall motion abnormalities are evident. Doppler suggests grade 1 left ventricular diastolic dysfunction. Left atrium is mildly enlarged. Right atrium and right ventricle are normal in size with normal right ventricular systolic function. 4. No pericardial effusion. 5. Inferior vena cava not seen. CONCLUSIONS: 1. No significant valvular abnormality. 2. Estimated left ventricular ejection fraction of at least 65%. 3. Grade 1 left ventricular diastolic dysfunction suggested. 4. Mild left atrial enlargement. cc: MD Syd Schreiber MD
[2016-12-21] MEDS: NORCO-5 PO SCH ×2 (13:31→21:24)
[2016-12-21] MEDS: NS 1,000 ML IV SCH (13:33)
[2016-12-21] MEDS: ADVAIR 250/50 DISKUS INH SCH ×2 (15:03→19:52)
[2016-12-21] MEDS ORDERED: VANCOMYCIN 1 GM/NS 1 GM/250 ML IVPB IV ONE (16:18)
[2016-12-21] MEDS ORDERED: VANCOMYCIN 1,900 MG in NS 500 ML IV ONE (18:00)
[2016-12-21] MEDS ORDERED: ROCEPHIN 1 GM/NS 1 GM/50 ML IVPB IV SCH (20:00)
[2016-12-21] MEDS ORDERED: PRAVACHOL PO SCH (21:00)
[2016-12-21] MEDS ORDERED: NORCO-5 PO SCH (21:00)
[2016-12-21] MEDS ORDERED: DUONEB (A & A) INH PRN (21:34)
[2016-12-21] MEDS ORDERED: ZOFRAN IV PRN (21:36)
[2016-12-21] MEDS ORDERED: DELSYM LIQUID PO PRN (23:54)
[2016-12-22] MEDS: NS 1,000 ML IV SCH ×2 (01:37→10:41)
[2016-12-22] MEDS: DUONEB (A & A) INH SCH ×2 (04:23→07:43)
--- NOTE | 2016-12-22 07:28 | PROGRESS NOTE ---
DATE: 12/22/2016 SUBJECTIVE: Mr. Byrne was upset that he did not get his pain medicine. He was resting comfortably when I came in. Appears comfortable, breathing comfortably. PHYSICAL EXAMINATION: Vital Signs: Temperature 97.4 degrees, pulse 85, respirations 20, blood pressure 126/55. HEENT: Pupils are equal and round. CVP less than 6 cm. Respiratory: Lungs are clear. Cardiovascular Examination: Regular rhythm and rate without murmur or S3. Is and Os: Urine output 2400 mL. Laboratory Data: White count 8730, hematocrit 30, platelet count 289,000. Sodium 137, potassium 4, chloride 94, BUN 23, creatinine 1.2. Blood sugar 147, 223, 204, 205. ASSESSMENT AND PLAN: 1. Chronic obstructive pulmonary disease exacerbation. Treating for bronchial pneumonia. No sign of infiltrate on x-ray. He feels better today. He is aggravated because he wants more pain medicine and wants to leave. He said, "I can go home." I think the principal reason is he wants his pain medicine. We tried to regulate it. As he stated yesterday, he reports that he only takes 5 mg of Kewadin at breakfast and supper, and then one sometimes when he needs it. 2. Hypertension. Blood pressure control. 3. Continue present regimen, though he is threatening to leave against medical advice. Echocardiogram with Doppler done yesterday, read by Dr. Newman. No significant ventricular abnormality. Estimated left ventricular ejection fraction about 65%. Grade 1 ventricular diastolic dysfunction. Mild left atrial enlargement. Chest x-ray, severe emphysema with improvement in left infiltrates. Of course, he had a pulmonary angiogram on 12/20/2016 and it was no pulmonary emboli, otherwise stable CT. 4. Review of his orders. I do not see any change at this point. cc: David Bhatia MD
[2016-12-22] MEDS ORDERED: SPIRIVA INH SCH (07:30)
[2016-12-22] MEDS: ADVAIR 250/50 DISKUS INH SCH (07:44)
[2016-12-22 08:07] VITALS: BP 133/55
[2016-12-22] MEDS: NORCO-5 PO SCH (08:08)
[2016-12-22] MEDS ORDERED: SOLU-MEDROL IV SCH (09:00)
[2016-12-22] MEDS ORDERED: PRILOSEC PO SCH (09:00)
[2016-12-22] MEDS ORDERED: NORCO-5 PO PRN (09:39)
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
[2016-12-22] MEDS ORDERED: VANCOMYCIN IV PER PHARMACY MISC SCH (16:30)
[2016-12-22] MEDS ORDERED: VANCOMYCIN 1,350 MG in NS 250 ML IV SCH (18:00)
[2016-12-22] MEDS ORDERED: ROCEPHIN 1 GM/NS 1 GM/50 ML IVPB IV SCH (21:00)
--- NOTE | 2016-12-26 13:10 | HISTORY AND PHYSICAL ---
DATE: 12/20/2016 PRIMARY CARE PHYSICIAN: Galileo Mckeon MD CHIEF COMPLAINT: Shortness of breath. HISTORY OF PRESENT ILLNESS: This is a 71-year-old male with past medical history of severe COPD with multiple readmissions to the hospital who presented to the emergency department today complaining of difficulty breathing that has been going on for 2-3 days. He also noticed whitish sputum that is getting more productive. He denies any fever or chills. The patient also was feeling a little bit more tired recently. Here upon ER evaluation, he was found to have a white cell count mildly elevated at 13.41 and D-dimer also mildly elevated as well. The patient is being admitted for further evaluation and treatment. PAST MEDICAL HISTORY: 1. COPD with home oxygen for the last 20 years. 2. Hypertension. 3. Coronary artery disease. 4. . PAST SURGICAL HISTORY: Appendectomy. SOCIAL HISTORY: Patient lives in a motel with his because he had some problems with home. He reports that he quit smoking tobacco in 1981, but he is still using chewing tobacco. He reports not drinking any alcohol in 15 years. He denies using any illicit drugs. FAMILY HISTORY: Significant for coronary artery disease. ALLERGIES: Cipro and doxycycline. REVIEW OF SYSTEMS: 11 systems were reviewed and all symptoms are related to history and physical. PHYSICAL EXAMINATION: Vitals: Temperature 98.3 degrees, heart rate 80, respiratory rate 16, blood pressure 155/83, O2 saturation 98% on 2 L nasal cannula. General: This is a chronically ill looking and frail 71-year-old male lying in bed, in no acute distress. HEENT: Head is normocephalic, atraumatic. Anicteric sclerae and pale conjunctivae. Mucous membranes moist. Neck: Supple. No JVD noted. No carotid bruits. No lymphadenopathy. No thyromegaly. Cardiovascular: S1, S2 heard. No murmurs, gallops, or rubs. Regular rate and rhythm. Respiratory: Decreased breath sounds globally with wheezing in both pulmonary couch. Patient is not using any accessory muscles or having work of breathing. Abdomen: Soft, nontender to palpation. Bowel sounds present. No organomegaly. Extremities: No clubbing, cyanosis, or edema. Peripheral pulses present in both legs. Neurological: Patient alert and oriented x3. Moves 4 extremities. LABORATORY DATA: White cell count 13.41, hemoglobin 10.6, hematocrit 35.4, platelets 259,000. BMP is unremarkable. ASSESSMENT AND PLAN: 1. Acute on chronic respiratory failure. 2. Chronic obstructive pulmonary disease exacerbation. 3. Hypertension. 4. Coronary artery disease. PLAN: 1. The patient is being admitted to the hospital because of chronic obstructive pulmonary disease exacerbation that has gone on for the last 2-3 days. He also reports whitish versus greenish sputum. So at this point, we are going to add ceftriaxone to his current treatment. The patient is going to be continued with breathing treatments, in this case, DuoNeb every 4 hours scheduled. Also, we are going to add Spiriva to his current treatment considering that he was using his Combivent, but he did not feel any relief. Although this patient looks definitely to have shortness of breath because of chronic obstructive pulmonary disease exacerbation, the fact that this D-dimer is a little bit elevated will make us order a computed tomography angio of the chest. We are going to order one. Because of lack of beds, we are going to transfer this patient to [facility]. 2. Also, we are going to provide IV steroids. 3. Further recommendations to follow according to the clinical situation of the patient. cc: Syd Licona MD
--- NOTE | 2017-01-18 10:36 | PROVIDER DOCUMENTATION ---
This chart was entered by Keesha Roger Scribe, acting as scribe for Vahid Abarca MD. HPI-General Adult - General Chief Complaint: Possible Sepsis-D Stated Complaint: sob Time Seen by Provider: 12/20/16 19:06 Source: patient Allergies/Adverse Reactions: Patient Allergies Allergy/AdvReac Type Severity Reaction Status Date / Time ciprofloxacin [From Cipro] AdvReac Severe SEIZURES Verified 01/02/17 18:46 doxycycline AdvReac Severe SEIZURES Verified 01/02/17 18:46 Home Medications: Home Medication List Medication Instructions Recorded Confirmed Last Taken Type Albuterol [Albuterol Neb] 2.5 mg INH RTQ4H 07/16/15 01/02/17 01/01/17 21:00 History PRAVAstatin [Pravachol] 40 mg PO QHS 11/10/15 01/02/17 12/19/16 20:00 History - History of Present Illness -Gen Adult Nature of Presenting Problems: 71 Y/O M presents to ED with General adult c/o. Pt c/o of all over body aches, SOB no different then prior. Has a hx of COPD and arthritis. States the pain started yesterday, states pain in left hip. Location of Pain/Injury: reports: generalized Pain Radiation: reports: no radiation Quality of Pain: reports: aching Severity: reports: mild, moderate Onset/Duration: reports: last night Timing: reports: still present Associated Symptoms: reports: arm pain, back/neck pain, chest pain, muscle aches , shortness of breath. denies: diarrhea, fever/chills Similar Symptoms Previously?: Yes Review of Systems - Adult - REVIEW OF SYSTEMS - ADULT Constitutional: denies: chills, fever Eyes: reports: no symptoms reported Ears, Nose, Mouth & Throat: reports: no symptoms reported Cardiovascular: denies: chest pain Respiratory: reports: shortness of breath Gastrointestinal: denies: abdominal pain, diarrhea, nausea, vomiting Genitourinary: reports: no symptoms reported Musculoskeletal: reports: muscle aches Integumentary: reports: no symptoms reported Neurological: reports: no symptoms reported Psychiatric: reports: no symptoms reported Endocrine: reports: no symptoms reported Hematologic/Lymphatic: reports: no symptoms reported Allergic/Immunologic: reports: no symptoms reported All Other Systems: Reviewed and Negative Past History - Adult - PAST MEDICAL HISTORY-ADULT Review of Records: reports: Old Records Reviewed, Nursing Assessment Review, Medications Reviewed, Social history reviewed & non-contributory. Major Childhood Illnesses: reports: denies history Cardiovascular: reports: cardiac disease, CAD, CHF, HTN, hyperlipidemia, [place] Respiratory: reports: asthma, COPD (on home o2 saturation), sleep apnea Gastrointestinal: reports: denies history Obstetrical/Gynecological: reports: denies history Genitourinary: reports: denies history Musculoskeletal: reports: arthritis, chronic pain, intervertebral disc disease, neck/back injury Neurological: reports: Seizures/Epilepsy Endocrine/Immune: reports: Diabetes Other Conditions: reports: MRSA, psoriasis Additional History: Freq ER visits for COPD; 2L of O2 13/03 dependent - PRIOR SURGERIES/PROCEDURES Surgical/Procedure History: reports: appendectomy, cardiac stent, other - IMMUNIZATION STATUS Childhood Immunizations: See Nurse Assessment Flu Vaccine: See Nurse Assessment - FAMILY HISTORY Family History: reviewed, not pertinent - SOCIAL HISTORY Smoking: chew Living Situation: family Physical Exam-General - PHYSICAL EXAM-ADULT Initial Vital Signs Reviewed: Yes - CONSTITUTIONAL General Appearance: appears well, alert, no apparent distress - EYES Eyes: PERRL/EOMI, pink conjunctivae - HEAD, EARS, NOSE, MOUTH & THROAT HENMT: normocephalic/atraumatic, moist mucous membranes, normal ENT inspection, TMs normal, pharynx normal - NECK Neck: non-tender, full range of motion, supple, normal inspection - RESPIRATORY Respiratory: wheezing (bilateral). negative: normal breath sounds (coarse) - CARDIOVASCULAR Cardiovascular: normal peripheral pulses, regular rate, rhythm - GASTROINTESTINAL (ABDOMEN) Abdominal Exam: normal bowel sounds, non tender, soft - LYMPHATIC Lymphatic: no adenopathy - MUSCULOSKELETAL Back Exam: normal inspection - SKIN Integumentary: normal color, normal turgor - NEUROLOGIC Neurologic: commander internal affairs II-XII nml as tested - PSYCHIATRIC Psych/Mental Status: normal mood/affect, normal thought content, normal thought process, oriented x 3 Progress - PLAN OF CARE/RESULTS Progress/Plan/Lab Results: Vital Signs - 8 hr 12/20/16 15:14 12/20/16 18:00 Temperature 98.0 F Pulse Rate 81 86 Respiratory Rate 22 16 Blood Pressure 163/68 175/82 O2 Sat by Pulse Oximetry 100 99 Laboratory Results - last 24 hr 12/20/16 12/20/16 12/20/16 15:40 15:40 15:40 WBC RBC Hgb Hct MCV MCH MCHC RDW Std Deviation Plt Count MPV Immature Gran % (Auto) Neut % (Auto) Lymph % (Auto) [place] % (Auto) Eos % (Auto) Baso % (Auto) Immature Gran # (Auto) Neut # (Auto) Lymph # (Auto) [place] # (Auto) Eos # (Auto) Baso # (Auto) PT INR PTT (Actin FS) D-Dimer 0.56 H Sodium 139 Potassium 3.5 Chloride 96 L Carbon Dioxide 35 Anion Gap 8 BUN 23 H Creatinine 1.1 Estimated GFR/1.73 m2 > 60 BUN/Creatinine Ratio 21 Glucose 121 H Calculated Osmolality 282 Calcium 9.2 Magnesium 2.2 Total Bilirubin 0.21 AST 83 H ALT 65 H Alkaline Phosphatase 127 H Creatine Kinase 26 Troponin T < 0.010 [id number] Pept Total Protein 8.3 Albumin 3.5 Globulin 4.8 Albumin/Globulin Ratio 0.7 12/20/16 12/20/16 12/20/16 15:40 15:40 15:40 WBC 13.41 H RBC 3.95 L Hgb 10.6 L Hct 35.4 L MCV 89.6 MCH 26.8 L MCHC 29.9 L RDW Std Deviation 13.9 Plt Count 359 MPV 10.2 Immature Gran % (Auto) 0.2 Neut % (Auto) 70.2 Lymph % (Auto) 12.2 L [place] % (Auto) 11.3 H Eos % (Auto) 5.7 Baso % (Auto) 0.4 Immature Gran # (Auto) 0.03 Neut # (Auto) 9.41 H Lymph # (Auto) 1.63 [place] # (Auto) 1.52 H Eos # (Auto) 0.76 H Baso # (Auto) 0.06 PT 11.0 INR 1.04 PTT (Actin FS) 30.6 D-Dimer Sodium Potassium Chloride Carbon Dioxide Anion Gap BUN Creatinine Estimated GFR/1.73 m2 BUN/Creatinine Ratio Glucose Calculated Osmolality Calcium Magnesium Total Bilirubin AST ALT Alkaline Phosphatase Creatine Kinase Troponin T [id number] Pept 817 H Total Protein Albumin Globulin Albumin/Globulin Ratio Orders Category Date Time Status Cardiac Monitoring DIRECTED Care 12/20/16 15:33 Active Oxygen Therapy- ED Nursing DIRECTED Care 12/20/16 15:33 Active CHEST-2 VIEWS [RAD] Stat Exams 12/20/16 15:33 Completed BLOOD CULTURE [BLDCUL] Stat Lab 12/20/16 18:40 Received CBC WITH ELECTRONIC DIFF [HEME] Stat Lab 12/20/16 15:40 Completed CK PROFILE [SP CHEM] Stat Lab 12/20/16 15:40 Completed COMPREHENSIVE METABOLIC PANEL [CHEM] Stat Lab 12/20/16 15:40 Completed D-DIMER [CHEM] Stat Lab 12/20/16 15:40 Completed LACTATE, PLASMA [CHEM] Stat Lab 12/20/16 18:38 Received MAGNESIUM [CHEM] Stat Lab 12/20/16 15:40 Completed PRO B-NATRIURETIC PEPTIDE Stat Lab 12/20/16 15:40 Completed PROTIME WITH INR [COAG] Stat Lab 12/20/16 15:40 Completed PTT [COAG] Stat Lab 12/20/16 15:40 Completed TROPONIN T Stat Lab 12/20/16 15:40 Completed Aspirin Med 12/20/16 15:33 Discontinued 325 mg PO STAT STA EKG [EKG] Stat Ther 12/20/16 15:23 Ordered EKG [EKG] Stat Ther 12/20/16 15:33 Ordered Result Diagrams: 12/21/16 07:10 12/21/16 07:10 - XRAY 1 XRAY Study: Chest Impression: Normal XRAY Interpretation: Small pleural effusions, no changes COPD - CONSULTS/PCP/HOSPITALIST Notification #1 *Consult/PCP/Hospitalist*: Time Discussed: 19:38 Reason/Comments: Admit Consult Disposition: Admit (Admit Accepted) Departure - Departure Date of Disposition Decision: 12/20/16 Time of Disposition Decision: 19:50 DIAGNOSIS: COPD (chronic obstructive pulmonary disease) Disposition: ADMITTED INPATIENT 09 Certified Medical Emergency: Emergent Condition: Stable - Critical Care Note This patient required my direct & personal management of CC.: No This chart was documented by the indicated scribe, (Keesha Roger Scribe) and accurately reflects the services I performed and decisions made by , Vahid Abarca MD, as attested by the provider's signature.
== END 2016-12-22 11:56 | disposition home or self-care (01) ==
LOC: ED 15:10 → SUATTDRO 21:07 → P.MEDSURG 21:07 → EDIPHOLD 22:40 → 3N 22:41
PROVIDERS: ATTEND Emergency Medicine

== ENCOUNTER 2017-01-21 21:14 | Inpatient (IN) ==
[2017-01-21] MEDS ORDERED: M.V.I.-12 10 ML, FOLIC ACID 1 MG, MAGNESIUM SULFATE 1 GM, THIAMINE 100 MG in NS 1,000 ML IV ONE (21:51)
--- NOTE | 2017-01-21 21:52 | PROVIDER DOCUMENTATION ---
HPI-General Adult - General Chief Complaint: General Adult Stated Complaint: sob Time Seen by Provider: 01/21/17 21:18 Source: patient Allergies/Adverse Reactions: Patient Allergies Allergy/AdvReac Type Severity Reaction Status Date / Time ciprofloxacin [From Cipro] AdvReac Severe SEIZURES Verified 01/02/17 18:46 doxycycline AdvReac Severe SEIZURES Verified 01/02/17 18:46 Home Medications: Home Medication List Medication Instructions Recorded Confirmed Last Taken Type Albuterol [Albuterol Neb] 2.5 mg INH RTQ4H 07/16/15 01/02/17 01/01/17 21:00 History PRAVAstatin [Pravachol] 40 mg PO QHS 11/10/15 01/02/17 12/19/16 20:00 History - History of Present Illness -Gen Adult Nature of Presenting Problems: Pt is a 71 y/o M who reports to the ER stating he is short of breath, had a seizure at home and has been drinking alcohol throughout the day. pt states he believes his seizure today was related to alcohol. Pt's is with him and is unsure if she witnessed seizures. Pt has a long and extensive medical hx c multiple admissions for COPD exacerbation and hypercapnia. Pt is on 5lpm O2 via nasal cannula at home. On arrival, pt is alert and oriented and in minimal distress. Review of Systems - Adult - REVIEW OF SYSTEMS - ADULT Constitutional: reports: no symptoms reported. denies: chills, fatique Eyes: reports: no symptoms reported. denies: blurred vision, double vision Ears, Nose, Mouth & Throat: reports: no symptoms reported. denies: ear pain, nose pain, throat pain Cardiovascular: reports: no symptoms reported. denies: chest pain, orthopnea Respiratory: reports: chronic cough, cough, wheezing. denies: shortness of breath Gastrointestinal: reports: no symptoms reported. denies: abdominal pain, nausea Genitourinary: reports: no symptoms reported. denies: dysuria, hematuria Musculoskeletal: reports: no symptoms reported. denies: bone pain, joint pain, joint swelling Integumentary: reports: no symptoms reported. denies: hives, itching, rash Neurological: reports: see HPI, syncope. denies: numbness, paresthesia Psychiatric: reports: no symptoms reported. denies: anxiety, emotional problems Endocrine: reports: no symptoms reported. denies: cold intolerance, heat intolerance Hematologic/Lymphatic: reports: no symptoms reported. denies: blood clots, low blood count Allergic/Immunologic: reports: no symptoms reported. denies: allergic rhinitis , food allergy All Other Systems: Reviewed and Negative Past History - Adult - PAST MEDICAL HISTORY-ADULT Review of Records: reports: Old Records Reviewed, Nursing Assessment Review, Medications Reviewed, Social history reviewed & non-contributory. Major Childhood Illnesses: reports: denies history Cardiovascular: reports: cardiac disease, CAD, CHF, HTN, hyperlipidemia, [place] Respiratory: reports: asthma, COPD (on home o2 saturation), sleep apnea Gastrointestinal: reports: denies history Obstetrical/Gynecological: reports: denies history Genitourinary: reports: denies history Musculoskeletal: reports: arthritis, chronic pain, intervertebral disc disease, neck/back injury Neurological: reports: Seizures/Epilepsy Endocrine/Immune: reports: Diabetes Other Conditions: reports: MRSA, psoriasis Additional History: Freq ER visits for COPD; 2L of O2 / dependent - PRIOR SURGERIES/PROCEDURES Surgical/Procedure History: reports: appendectomy, cardiac stent, other - IMMUNIZATION STATUS Childhood Immunizations: See Nurse Assessment Flu Vaccine: See Nurse Assessment - FAMILY HISTORY Family History: reviewed, not pertinent - SOCIAL HISTORY Substance Use: alcohol Living Situation: family Physical Exam-General - PHYSICAL EXAM-ADULT Initial Vital Signs Reviewed: Yes - CONSTITUTIONAL General Appearance: appears well, alert, no apparent distress - EYES Eyes: PERRL/EOMI, pink conjunctivae - HEAD, EARS, NOSE, MOUTH & THROAT HENMT: normocephalic/atraumatic, moist mucous membranes, normal ENT inspection - NECK Neck: normal inspection - RESPIRATORY Respiratory: chest non-tender, wheezing - CARDIOVASCULAR Cardiovascular: normal peripheral pulses, regular rate, rhythm - GASTROINTESTINAL (ABDOMEN) Abdominal Exam: normal bowel sounds, non tender, soft - LYMPHATIC Lymphatic: no adenopathy - MUSCULOSKELETAL Back Exam: normal inspection, no CVA tenderness, no vertebral tenderness Extremity: normal range of motion, non-tender, normal inspection - SKIN Integumentary: normal color, normal turgor, warm/dry - NEUROLOGIC Neurologic: grossly normal, no motor/sensory deficits - PSYCHIATRIC Psych/Mental Status: normal mood/affect, normal thought content, normal thought process, oriented x 3 Progress - PLAN OF CARE/RESULTS Progress/Plan/Lab Results: Vital Signs - 8 hr 01/21/17 21:28 Temperature 98.0 F Pulse Rate 79 Respiratory Rate 15 Blood Pressure 128/77 O2 Sat by Pulse Oximetry 97 Orders Category Date Time Status Cardiac Monitoring DIRECTED Care 01/21/17 21:49 Active Oxygen Therapy- ED Nursing DIRECTED Care 01/21/17 21:49 Active Saline Loc NOW Care 01/21/17 21:49 Active CHEST-PORTABLE [RAD] Stat Exams 01/21/17 21:49 Ordered HEAD W/O CONTRAST [CT] Stat Exams 01/21/17 21:50 Ordered ALCOHOL BLOOD Stat Lab 01/21/17 21:49 Uncollected CBC WITH ELECTRONIC DIFF [HEME] Stat Lab 01/21/17 21:49 Uncollected CK PROFILE [SP CHEM] Stat Lab 01/21/17 21:49 Uncollected COMPREHENSIVE METABOLIC PANEL [CHEM] Stat Lab 01/21/17 21:49 Uncollected LACTATE, PLASMA [CHEM] Stat Lab 01/21/17 21:49 Uncollected PROTIME WITH INR [COAG] Stat Lab 01/21/17 21:49 Uncollected PTT [COAG] Stat Lab 01/21/17 21:49 Uncollected TROPONIN T Stat Lab 01/21/17 21:49 Uncollected URINALYSIS W/POSS RFLX CULT-1 [URINALYSIS] Stat Lab 01/21/17 21:49 Uncollected URINE DRUG SCREEN Stat Lab 01/21/17 21:49 Uncollected Mvi [M.v.i.-12] 10 ml Med 01/21/17 21:51 Active Folic Acid 1 mg Magnesium Sulfate 1 gm Thiamine 100 mg 0.9% Sodium Chloride Inj [Ns] 1,000 ml IV NOW Pulse Oximetry Stat Oth 01/21/17 21:49 Active EKG [EKG] Stat Ther 01/21/17 21:49 Ordered Result Diagrams: 01/21/17 22:20 01/21/17 22:20 - REASSESSMENT Reassessment #1 Time Reassessed: 00:03 (Discussed pt c Dr. Abarca who reviewed all imaging studies and labs. He agrees c d/c of pt. ) - XRAY 1 XRAY Study: Chest Impression: Normal XRAY Interpretation: no change - CT/MRI 1 CT Study: Head Impression: Normal CT Results: nad - radiology - CONSULTS/PCP/HOSPITALIST Notification #1 *Consult/PCP/Hospitalist*: Dr. Farias (hospitalist) Time Discussed: 00:57 Reason/Comments: Will see pt in the ER and admit. Departure - Departure Date of Disposition Decision: 01/22/17 Time of Disposition Decision: 00:04 DIAGNOSIS: Seizure-like activity, Hypercapnic acidosis Alcohol intoxication Qualifiers: Complication of substance-induced condition: uncomplicated Qualified Code(s): F10.920 - Alcohol use, unspecified with intoxication, uncomplicated Disposition: ADMITTED INPATIENT 09 Certified Medical Emergency: Emergent Condition: Stable Referrals and Follow-Ups: None,PCP [Primary Care Provider] - - Critical Care Note This patient required my direct & personal management of CC.: No Attestation - Physician/ INDY Attestation Patient care was provided by Advanced Practice Provider:: Yes Advanced Practice Provider:: Maximino Crocker Advanced Practice Provider documentation review:: The Mid-level provider documentation, treatment plan and medical decision making was reviewed by the physician who agrees with all treatment and medical decision making by the P.
[2017-01-21 23:08] LABS: URINE CULTURE NEEDED? NO; URINE MICRO REVIEW NEEDED? NO; URINE SOURCE CLEAN CATCH
[2017-01-21 23:08] LABS: MANUAL DIFF NEEDED? NO
[2017-01-21 23:11] LABS: BASO% 0.4 % (0.0-0.8); EOS# 0.48 X1000 (0.0-0.7); EOS% 6.4 % (0.0-10.0); HEMATOCRIT 31.7 % (42.0-52.0); HEMOGLOBIN 9.5 g/dL (14.0-18.0); IMM GRAN# 0.02 X1000 (0.0-0.04); IMM GRAN% 0.3 % (0.0-0.5); LYMPH# 3.55 X1000 (1.2-3.4); LYMPH% 47.1 % (20.5-51.1); MCH 26.1 PG (27-31); MCV 87.1 FL (81-99); MONO# 0.65 X1000 (0.11-0.59); MONO% 8.6 % (1.7-9.3); MPV 10.8 FL (7.4-10.4); NEUT% 37.2 % (42.2-75.2); PLT 272 X1000 (130-400); RBC 3.64 XMIL (4.7-6.1)
[2017-01-21 23:13] LABS: BILIRUBIN URINE NEGATIVE (NEGATIVE); BLOOD URINE NEGATIVE (NEGATIVE); COLOR STRAW; GLUCOSE URINE NEGATIVE (NEGATIVE); LEUKOCYTES URINE NEGATIVE (NEGATIVE); NITRITE URINE NEGATIVE (NEGATIVE); PH URINE 5.5; PROTEIN URINE NEGATIVE (NEGATIVE); SP GRAVITY URINE 1.002; TURBIDITY URINE CLEAR (CLEAR); UROBILINOGEN URINE NORMAL (NORMAL)
[2017-01-21 23:15] LABS: UR EPITHELIAL CELLS <10 /HPF (<10); URINE BACTERIA NEGATIVE /HPF; URINE RBC <10 /HPF (<10); URINE WBC <10 /HPF (<10)
[2017-01-21 23:20] LABS: PROTIME 10.5 Seconds (9.2-11.7); PTT 28.5 Seconds (22.0-36.0)
[2017-01-21 23:22] LABS: UR AMPHETAMINES QUAL NONE DETECTED (NONE DETECT); UR BARBITUATES QUAL NONE DETECTED (NONE DETECT); UR BENZODIAZEPIN QUAL NONE DETECTED (NONE DETECT); UR CANNABINOIDS QUAL NONE DETECTED (NONE DETECT); UR COCAINE QUAL NONE DETECTED (NONE DETECT); UR METHADONE QUAL NONE DETECTED (NONE DETECT); UR OPIATES QUAL NONE DETECTED (NONE DETECT); UR OXYCODONE QUAL NONE DETECTED (NONE DETECT); UR PCP QUAL NONE DETECTED (NONE DETECT)
[2017-01-21 23:28] LABS: AGAP 9; ALBUMIN 3.6 g/dL (3.5-5.0); ALKALINE PHOSPHATASE 110 U/L (32-122); BUN 16 mg/dL (8-22); CALCIUM 8.4 mg/dL (8.8-10.2); CHLORIDE 99 mmol/L (98-107); CK PROFILE 46 U/L (24-204); COSMO 278; GOT 33 U/L (10-34); GPT 22 U/L (10-44); POTASSIUM 4.4 mmol/L (3.5-5.1); SODIUM 139 mmol/L (136-145); TCO2 31 mmol/L (25-35); TOTAL BILIRUBIN 0.15 mg/dL (0.20-1.00); TOTAL PROTEIN 7.1 g/dL (6.3-8.3)
[2017-01-22 00:29] LABS: ALLEN TEST YES; BE 4.8 mmoll (-3.0-3.0); BLOOD TYPE ARTERIAL; DRAW SITE R BRACHIAL; METHB 0.3 % (0.0-1.5); O2(CT) 12.9 mL/dL (15.0-23.0); PO2(98.6) 157 mmHg (60-100); SAMPLE BLOOD; THB 9.1 g/dL (11.5-17.4)
[2017-01-22 00:30] LABS: MODALITY CANNULA
[2017-01-22 00:31] LABS: PCO2(98.6) 88 mmHg (35-45)
[2017-01-22] MEDS ORDERED: ZOFRAN IV PRN (03:33)
[2017-01-22] MEDS ORDERED: DUONEB (A & A) INH PRN (03:33)
[2017-01-22] MEDS: SOLU-MEDROL IV SCH ×2 (04:19→15:40)
[2017-01-22] MEDS: DUONEB (A & A) INH SCH ×6 (04:39→22:57)
[2017-01-22 06:59] LABS: BASO% 0.5 % (0.0-0.8); EOS# 0.06 X1000 (0.0-0.7); HEMATOCRIT 33.2 % (42.0-52.0); HEMOGLOBIN 9.9 g/dL (14.0-18.0); IMM GRAN# 0.02 X1000 (0.0-0.04); IMM GRAN% 0.3 % (0.0-0.5); LYMPH# 0.65 X1000 (1.2-3.4); LYMPH% 11.2 % (20.5-51.1); MANUAL DIFF NEEDED? NO; MCH 26.1 PG (27-31); MCHC 29.8 g/dL (33-37); MCV 87.6 FL (81-99); MONO# 0.09 X1000 (0.11-0.59); MONO% 1.6 % (1.7-9.3); MPV 10.3 FL (7.4-10.4); NEUT% 85.4 % (42.2-75.2); PLT 257 X1000 (130-400); RBC 3.79 XMIL (4.7-6.1)
[2017-01-22] MEDS ORDERED: SODIUM CHLORIDE 0.9% INJ SCH (07:00)
[2017-01-22 07:29] LABS: AGAP 12; BUN 14 mg/dL (8-22); CALCIUM 8.7 mg/dL (8.8-10.2); CHLORIDE 104 mmol/L (98-107); COSMO 285; POTASSIUM 4.9 mmol/L (3.5-5.1); SODIUM 143 mmol/L (136-145); TCO2 27 mmol/L (25-35)
--- NOTE | 2017-01-22 08:02 | HISTORY AND PHYSICAL ---
CHIEF COMPLAINT: Shortness of breath. HISTORY OF PRESENT ILLNESS: Mr. Byrne is a 71-year-old male with a past medical history most notable for COPD, coronary artery disease, hypertension, and hyperlipidemia that presented to the ER today with shortness of breath. Patient states this evening he began having worsening shortness of breath. He also states that he had a period where he felt like he was going to have a seizure, though upon speaking with the patient he denied having a seizure this afternoon. The patient states that he does not normally drink though did drink some beers today. He reports at this time he is living at the [facility] and has been on home oxygen at 5 L nasal cannula. The patient does have a history of multiple admissions for COPD exacerbation and hypercapnia in the past. Upon evaluation in the ER, patient was found to be slightly drowsy upon examination though was easily arousable with verbal stimulation. Patient's alcohol level was elevated at 169 as well as his blood gases did show an elevated CO2 level of 88 with a pH of 7.2. These were drawn on nasal cannula at 5 L. At this time we will admit the patient for further treatment and evaluation of his COPD exacerbation and hypercapnia. REVIEW OF SYSTEMS: A 12 point review of systems was conducted with the patient and all were negative except for pertinent positives mentioned above in the HPI. The patient denies any headache, dizziness, chest pain, abdominal pain, nausea, vomiting, or constipation. The patient did report that over the last day or 2 he has had a few episodes of loose stools. He denies any dysuria, urinary frequency, or pain, numbness, or tingling in the extremities. PAST MEDICAL HISTORY: 1. COPD on home oxygen. 2. Hypertension. 3. Hyperlipidemia. 4. Coronary artery disease, status post stent placement. 5. Previous history of diabetes mellitus, though the patient denies taking any current medications for this. 6. Hepatitis C. PAST SURGICAL HISTORY: 1. Appendectomy. 2. Cardiac stent placement. SOCIAL HISTORY: The patient currently states that he is living at the [facility] here in [place]. He is a former smoker but states she quit smoking in 1981. The patient did drink some beers today prior to his arrival at the ER but states prior to this that he has not done any regular drinking in 15 years. He denies any illicit drug use. FAMILY HISTORY: Positive for coronary artery disease. ALLERGIES: Patient reports allergies to ciprofloxacin and doxycycline. HOME MEDICATIONS: 1. Aspirin enteric-coated 325 mg p.o. daily. 2. Pravastatin 40 mg p.o. at bedtime. 3. Combivent Respimat inhaler 1 puff inhaled daily. 4. Pryor 7.5 mg p.o. t.i.d. p.r.n. for pain. 5. Xanax 1 p.o. b.i.d. for anxiety. 6. Albuterol nebulizer treatments 2.5 mg inhaled q.4 hours. 7. Questionable prescription for Norvasc 5 mg p.o. daily. We have placed an order for the patient's home medications and dosages to be confirmed with his pharmacy. DIAGNOSTIC DATA/LABORATORY RESULTS: White blood cell count 7.53, hemoglobin 9.5 , hematocrit 31.7, platelet count is 272,000. PT 10.5, INR 1.0, PTT is 28.5. Sodium 139, potassium 4.4, chloride 99, bicarb 31, BUN 16, creatinine 1.1, glucose 81, calcium 8.4. Liver function tests are within normal limits. CK 46. Troponin less than 0.01. Plasma lactate 0.9. Serum alcohol level was 169. Urine drug screen was negative. Urinalysis was within normal limits; no signs of infection noted. Arterial blood gases were obtained on nasal cannula at 5 L, pH was 7.2, pCO2 88, pO2 157, HC03 28.7 with a base excess of 4.8, and O2 saturation of 100%. Chest x-ray showed findings consistent with COPD disease, though no other acute abnormalities noted, though we are awaiting official radiology over-read. A CT of the head showed no acute intracranial abnormality. There was nonspecific white matter disease with chronic damage in both anterior and frontal lobes and temporal lobes. This may be related to old trauma. PHYSICAL EXAMINATION: VITAL SIGNS: Temperature 98.1 degrees, heart rate 76, respirations 16, blood pressure is 138/55, oxygen saturation is 100% on nasal cannula at 4 L. GENERAL: Mr. Byrne is a 71-year-old male who is resting in the ER stretcher. He was drowsy upon examination, though easily awakened with verbal stimuli. Once he was awake he was alert and oriented x3 and able to answer all questions appropriately. HEENT: Head is atraumatic, normocephalic. Pupils are equal, round, reactive to light, 3 mm bilaterally and brisk. Oral mucosa is moist. Oropharynx was clear. NECK: Supple. Trachea midline. CARDIOVASCULAR: Patient has normal S1, S2. No murmurs, gallops, rubs appreciated. Regular rate and rhythm. PULMONARY: Patient has symmetrical chest expansion bilaterally. Lung sounds in bilateral couch were course with fine crackles noted in bilateral bases. ABDOMEN: Soft, nontender, nondistended. Bowel sounds are present in all 4 quadrants, were normoactive. EXTREMITIES: No cyanosis, clubbing, or edema noted. Both motor and sensory were intact in all extremities. Pedal pulses were 3+ bilaterally. INTEGUMENTARY: Patient skin is pink, warm, dry, intact. No lesions or sores noted. NEUROLOGICAL: The patient is alert and oriented to person, place, time, and situation. Cranial nerves 2 through 12 are grossly intact. ASSESSMENT AND PLAN: 1. Chronic obstructive pulmonary disease exacerbation. For this we have placed the patient on Solu-Medrol 40 mg q.12. We will also do scheduled DuoNeb treatments q.[address] the patient on BiPAP. The patient does have chronic hypercapnia, though from baseline this is elevated at this time at 88. We will redraw an ABG in the morning. Continue to monitor. 2. Coronary artery disease, status post stent placement. We will continue the patient's on aspirin. 3. Hypertension. The patient previously took Norvasc, though we are waiting to get his home medication list verified with his pharmacy. His blood pressure is within normal limits at this time. We will monitor this at this time and once his home medications have been confirmed we will continue his regularly prescribed medicines. 4. Hyperlipidemia. Will continue his pravastatin. 5. Alcohol intoxication. The patient denies any regular alcohol use, though we will continue to monitor him for any signs of alcohol withdrawal. 6. Deep vein thrombosis prophylaxis. Will place the patient on Lovenox 40 mg subcutaneously q.24 hours. 7. Gastrointestinal prophylaxis. Will place him on Protonix 40 mg IV q.24 hours. 8. The patient will be placed on the medical floor with telemetry. He will have vital signs q.4 with intake and outputs q.8. He will be on a heart healthy diet. We will repeat a CBC, BMP, and ABG in the morning. We will do incentive spirometry q.4 hours while awake as well. Further orders and recommendations pending hospital course, diagnostic studies, and physician evaluation. Dictated by QING Morgan for Syl Farias MD Seen and examined pt ; discussed plan with PHARMACY GRADUATE INTERN cc: Syl Farias MD [facility]
[2017-01-22] MEDS: PROTONIX IV SCH (08:36)
[2017-01-22] MEDS: ASPIRIN EC PO SCH (08:36)
[2017-01-22] MEDS: LOVENOX SUBQ SCH (08:37)
--- NOTE | 2017-01-22 08:45 | Diag Imaging Result Doc PS360 ---
EXAM: HEAD W/O CONTRAST INDICATION: seizure, altered, intoxicated COMPARISON: 08/14/2016 FINDINGS: There is patchy low attenuation in the periventricular and subcortical white matter suggesting mild microangiopathy. There is stable encephalomalacia at the anteroinferior frontal lobes and anterior tips of the temporal lobes. There is no definite acute infarct given the limited sensitivity of CT versus MRI. There is no discrete intracranial mass, mass effect, or intracranial hemorrhage. The surrounding soft tissues are essentially unremarkable. The calvaria is intact. IMPRESSION: Stable chronic changes as described. No evidence of acute intracranial pathology. Electronically signed by Maximino Miranda 01/22/2017 8:42 AM
[2017-01-22 08:58] LABS: ALLEN TEST YES; BE 7.9 mmoll (-3.0-3.0); BLOOD TYPE ARTERIAL; DRAW SITE R RADIAL; METHB 0.8 % (0.0-1.5); PO2(98.6) 118 mmHg (60-100); SAMPLE BLOOD; SAO2 99.4 % (95.0-100.0); THB 10.8 g/dL (11.5-17.4)
[2017-01-22] MEDS: NORCO-7.5 PO PRN ×2 (08:58→17:49)
[2017-01-22 09:03] LABS: MODALITY CANNULA; PCO2(98.6) 74 mmHg (35-45)
--- NOTE | 2017-01-22 12:16 | Diag Imaging Result Doc PS360 ---
EXAM: CHEST-PORTABLE INDICATION: AMS TECHNIQUE: One view COMPARISON: 01/02/2017 FINDINGS: There are stable COPD changes. There are mild increased interstitial markings bilaterally mainly at the bases most compatible with mild interstitial fibrotic change. This is stable. There are no new consolidations. There is no discrete pleural fluid collection or pneumothorax. The cardiomediastinal silhouette and central vasculature are grossly unremarkable. IMPRESSION: Stable COPD changes and chronic appearing interstitial thickening as described. No definite acute pathology by plain radiograph. Electronically signed by Maximino Miranda 01/22/2017 12:14 PM
--- NOTE | 2017-01-22 15:18 | PROGRESS NOTE ---
DATE: 01/22/2017 SUBJECTIVE: The patient is feeling well. Still having shortness of breath. Sitting by the bed comfortably. No fever, no chills, no nausea, vomiting, or diarrhea. OBJECTIVE: Vital Signs: Blood pressure 155/78, pulse of 96, respirations 20, temperature 97.7 degrees. Saturation 96% on room air. General Appearance: Well-developed, well-nourished, white male, in no acute distress. HEENT: Anicteric sclerae. Clear conjunctivae. Neck: Supple. No JVD. No bruit. Cardiovascular: S1, S2. Normal rate and rhythm. No murmur, rubs, or gallops. Pulmonary: Clear to auscultation bilaterally. GI: Soft, nontender, nondistended. Normoactive bowel sounds. Musculoskeletal: No clubbing, cyanosis, or edema. DIAGNOSTICS: His chest x-ray on admission showed COPD changes with interval thickening, but no definitive acute process. ASSESSMENT AND PLAN: A 71-year-old white male admitted to the hospital for shortness of breath. 1. Acute chronic obstructive pulmonary disease exacerbation. Mild. The patient is on IV steroid currently. We will keep him on for now nebulizer treatment, oxygen as needed. 2. Hyperlipidemia. We will continue pravastatin. 3. Gastrointestinal prophylaxis. We will continue Protonix. 4. Arthritis. We will continue hydrocodone. 5. Anxiety disorder. Continue Xanax.
[2017-01-22] MEDS: XANAX PO SCH (20:02)
[2017-01-22] MEDS ORDERED: PRAVACHOL PO SCH (21:00)
[2017-01-23] MEDS: SOLU-MEDROL IV SCH (02:33)
[2017-01-23] MEDS: DUONEB (A & A) INH SCH ×3 (03:13→10:46)
[2017-01-23] MEDS: PROTONIX IV SCH (07:00)
--- NOTE | 2017-01-23 07:19 | EKG Report ---
Test Performed on : 01/21/2017 9:16:44 PM Test Reason : AMS Blood Pressure : / mmHG Vent. Rate : 079 BPM Atrial Rate : 079 BPM P-R Int : 186 ms QRS Dur : 106 ms QT Int : 400 ms P-R-T Axes : 076 054 049 degrees QTc Int : 458 ms Normal sinus rhythm. Minimal voltage criteria for LVH, may be normal variant Inferior infarct , age undetermined Abnormal ECG No previous ECGs available Unconfirmed Result
[2017-01-23 08:38] VITALS: BP 149/65
[2017-01-23] MEDS: XANAX PO SCH (10:16)
[2017-01-23] MEDS: LOVENOX SUBQ SCH (10:16)
[2017-01-23] MEDS: ASPIRIN EC PO SCH (10:16)
[2017-01-23] MEDS: NORCO-7.5 PO PRN (10:53)
--- NOTE | 2017-01-24 05:36 | DISCHARGE SUMMARY ---
ADMISSION DATE: 01/22/2017 DISCHARGE DATE: 01/23/2017 CONSULTATIONS: None. PERTINENT PROCEDURES: 1. Head CT showed stable chronic changes. No evidence of acute intracranial pathology. 2. Chest x-ray stable COPD changes and chronic interstitial thickening. No acute pathology by plain radiographs. DISCHARGE DIAGNOSES: 1. Chronic obstructive pulmonary disease exacerbation mild, improved. Continue with home nebulizer treatments as well as O2. 2. Hyperlipidemia. Continue pravastatin. 3. Arthritis. Continue hydrocodone. 4. Anxiety disorder. Continue Xanax. 5. Alcohol intoxication without signs of withdrawal or DTs. HOSPITAL COURSE: Briefly, Mr. Byrne is a 71-year-old, male, well known to our service notable mostly for COPD exacerbations, coronary artery disease, hypertension and hyperlipidemia who presented to the ED with shortness of breath. The patient began having worsening shortness of breath and also felt like he had a period of where he felt like he was going to have a seizure but did not. He states that he does not normally drink though he did drink some beers on the day of his admission. The patient was admitted for mild COPD exacerbation as well as alcohol intoxication with an alcohol level of 169. He was started on Solu-Medrol as well as DuoNeb's and scheduled them p.r.n. He was initially paced on BiPAP. He does have chronic hypercapnia but he was elevated from his baseline. He was monitored closely for any alcohol withdrawal symptoms or DTs. However, the patient denied drinking on a regular basis. Clinically, the patient has improved. He was feeling better. He is appropriate for discharge back home today. VITAL SIGNS: Temperature is 97.7 degrees, heart rate 81, respirations 20, blood pressure 149/65, and O2 is 97% on 3 L nasal cannula. DISCHARGE DIET: Healthy heart. DISCHARGE MEDICATIONS: 1. Albuterol nebulizer 2.5 mg inhaled RT q.4 hours. 2. Xanax 0.5 mg 1 each p.o. b.i.d. 3. Aspirin. 325 mg p.o. daily. 4. Zithromax 250 mg p.o. daily. 5. Chana 7.5 one each p.o. t.i.d. p.r.n. 6. Combivent rescue inhaler 1 each inhaled daily. 7. Pravachol 40 mg p.o. at bedtime. 8. Prednisone taper. FOLLOW-UP: Mr. Byrne is being discharged back home with his home O2 and nebulizer treatments as well as p.o. antibiotics. He can return to the ED for any worsening of symptoms. DISCHARGE TIME: 30 minutes. Dictated by QING Oliveros for Gal Billy MD cc: Gal Billy MD
[2017-01-24] MEDS ORDERED: PREDNISONE PO SCH (09:00)
[2017-01-24] MEDS ORDERED: ZITHROMAX PO SCH (09:00)
== END 2017-01-23 18:36 | disposition home or self-care (01) ==
LOC: ED 21:14 → SUATTDRO 01-22 02:42 → 3N 01-22 02:42
PROVIDERS: ATTEND Internal Medicine

== ENCOUNTER 2017-04-17 18:30 | Inpatient (IN) ==
[2017-04-17] MEDS ORDERED: ASPIRIN PO STA (18:49)
--- NOTE | 2017-04-17 19:24 | Diag Imaging Result Doc PS360 ---
EXAM: CHEST-2 VIEWS HISTORY: CP TECHNIQUE: PA and lateral chest COMMENT: There is evidence of COPD and some apparent fibrosis particularly in the left base. The heart size and pulmonary vascularity are within normal limits. There has been no significant change since 04/07/2017. IMPRESSION: Stable chest. Electronically signed by Lauri Fowler 04/17/2017 7:21 PM
--- NOTE | 2017-04-17 20:15 | PROVIDER DOCUMENTATION ---
HPI-Respiratory General - General Chief Complaint: Shortness of Breath Stated Complaint: SOB Time Seen by Provider: 04/17/17 19:24 Source: patient Allergies/Adverse Reactions: Patient Allergies Allergy/AdvReac Type Severity Reaction Status Date / Time ciprofloxacin [From Cipro] AdvReac Severe SEIZURES Verified 04/03/17 18:36 doxycycline AdvReac Severe SEIZURES Verified 04/03/17 18:36 Home Medications: Home Medication List Medication Instructions Recorded Confirmed Last Taken Type Albuterol [Albuterol Neb] 2.5 mg INH RTQ4H 07/16/15 04/03/17 04/03/17 09:00 History PRAVAstatin [Pravachol] 40 mg PO QHS 11/10/15 04/03/17 04/02/17 21:00 History Alprazolam [Xanax] 1 each PO BID 01/22/17 04/03/17 04/02/17 History Aspirin EC 325 mg PO DAILY 01/22/17 04/03/17 04/03/17 08:00 History Ipratropium/Albuterol INH 1 each INH DAILY 01/22/17 04/03/17 04/03/17 14:00 History [Combivent Respimat Inhaler] Hydrocodone/Acetaminophen [[place] 1 each PO Q4-6H PRN PRN #10 tablet 02/21/1704/03/17 05:00 Rx 7.5-325 Tablet] Acetaminophen with Codeine 1 each PO Q6H PRN PRN #14 tablet 03/19/17 04/03/17 Unknown Rx [Tylenol with Codeine #3 Tablet] Methylprednisolone [Medrol Dosepak] 4 mg PO DIRECTED #1 package 04/03/17 Unknown Rx Acetaminophen with Codeine 1 each PO Q4H PRN PRN #5 tablet 04/05/17 Unknown Rx [Tylenol with Codeine #3] Meloxicam [Mobic] 15 mg PO DAILY #20 tablet 04/05/17 Unknown Rx Azithromycin [Zithromax Z-Fadi] 250 mg PO DIRECTED #1 pkg 04/08/17 Unknown Rx Methylprednisolone [Medrol Dosepak] 4 mg PO DIRECTED #1 package 04/08/17 Unknown Rx - History of Present Illness-Resp Nature of Presenting Problem: 71 y.o male with pMH COPD, emphysema, on home o2 who presents today for complaints of dyspnea. Pt reports he needs his neb treatment and steroids. Pt has hx of multiple ED visit for similar complaints. He reports that his symptoms are the same as usual. He did not follow up with his PMD/ pruner. Pt reports not knowing where he placed his prescriptions. He denies, fever, chest pain, nausea, vomiting. Pt denies any symptoms other than SOB. Timing: reports: still present, constant Cough Quality/Degree: reports: dry cough Episode Frequency: chronic episodes Modifying Factors: improves with: exertion Associated Symptoms: reports: cough Similar Symptoms Previously?: Yes Recently seen or treated by another doctor?: Yes Review of Systems - Adult - REVIEW OF SYSTEMS - ADULT Constitutional: reports: see HPI Eyes: reports: no symptoms reported Ears, Nose, Mouth & Throat: reports: no symptoms reported Cardiovascular: reports: no symptoms reported Respiratory: reports: see HPI Gastrointestinal: reports: no symptoms reported Genitourinary: reports: no symptoms reported Musculoskeletal: reports: no symptoms reported Integumentary: reports: no symptoms reported Neurological: reports: no symptoms reported Psychiatric: reports: no symptoms reported Endocrine: reports: no symptoms reported Hematologic/Lymphatic: reports: no symptoms reported Allergic/Immunologic: reports: no symptoms reported All Other Systems: Reviewed and Negative Past History - Adult - PAST MEDICAL HISTORY-ADULT Review of Records: reports: Old Records Reviewed Major Childhood Illnesses: reports: denies history Cardiovascular: reports: cardiac disease, CAD, CHF, HTN, hyperlipidemia, HI Respiratory: reports: asthma, COPD (on home o2), sleep apnea Gastrointestinal: reports: denies history Obstetrical/Gynecological: reports: denies history Genitourinary: reports: denies history Musculoskeletal: reports: arthritis, chronic pain, intervertebral disc disease, neck/back injury Neurological: reports: Seizures/Epilepsy Endocrine/Immune: reports: Diabetes Other Conditions: reports: MRSA, psoriasis Additional History: Freq ER visits for COPD; 2L of O2 / dependent - PRIOR SURGERIES/PROCEDURES Surgical/Procedure History: reports: appendectomy, cardiac stent - IMMUNIZATION STATUS Childhood Immunizations: See Nurse Assessment Flu Vaccine: See Nurse Assessment - FAMILY HISTORY Family History: reviewed, not pertinent Physical Exam-General - PHYSICAL EXAM-ADULT Initial Vital Signs Reviewed: Yes - CONSTITUTIONAL General Appearance: alert, no apparent distress - EYES Eyes: PERRL/EOMI - HEAD, EARS, NOSE, MOUTH & THROAT HENMT: normocephalic/atraumatic, moist mucous membranes - RESPIRATORY Respiratory: other (decrease air entry b/l - on NC at 3cc/hr) - GASTROINTESTINAL (ABDOMEN) Abdominal Exam: normal bowel sounds, non tender, no organomegaly - MUSCULOSKELETAL Back Exam: normal inspection, no CVA tenderness Extremity: normal range of motion, non-tender - SKIN Integumentary: normal color, normal turgor - NEUROLOGIC Neurologic: avid editor II-XII nml as tested - PSYCHIATRIC Psych/Mental Status: normal mood/affect, normal thought content, normal thought process, oriented x 3 Progress - PLAN OF CARE/RESULTS Progress/Plan/Lab Results: Vital Signs - 8 hr 04/17/17 18:40 04/17/17 21:38 04/17/17 21:45 Temperature 99.2 F 100.3 F H Pulse Rate 116 H 123 H 117 H Respiratory Rate 20 16 27 H Blood Pressure 156/94 136/80 120/73 O2 Sat by Pulse Oximetry 94 L 100 100 Laboratory Results - last 24 hr 04/17/17 04/17/17 04/17/17 20:45 20:45 20:45 WBC RBC Hgb Hct MCV MCH MCHC RDW Std Deviation Plt Count MPV Immature Gran % (Auto) Neut % (Auto) Lymph % (Auto) [place] % (Auto) Eos % (Auto) Baso % (Auto) Immature Gran # (Auto) Neut # (Auto) Lymph # (Auto) [place] # (Auto) Eos # (Auto) Baso # (Auto) PT INR PTT (Actin FS) D-Dimer Specimen Type Sample Site pH pCO2 pO2 HCO3 Base Excess Oxyhemoglobin ABG O2 Sat (Calculated) ABG O2 Saturation ABG Carboxyhemoglobin ABG Methemoglobin David Test A-a O2 Difference Total Hemoglobin Lactate Liter Flow Blood Gas Modality FiO2 % Sodium 139 Potassium 4.2 Chloride 99 Carbon Dioxide 27 Anion Gap 13 BUN 23 H Creatinine 1.4 H Estimated GFR/1.73 m2 50 BUN/Creatinine Ratio 16 Glucose 102 Calculated Osmolality 281 Calcium 9.1 Magnesium 1.8 Total Bilirubin 0.31 AST 51 H ALT 60 H Alkaline Phosphatase 87 Creatine Kinase 57 Troponin T 0.030 Oqh-H-Sorbzhlajdr Pept 832 H Total Protein 7.2 Albumin 3.8 Globulin 3.4 Albumin/Globulin Ratio 1.1 Plasma Lactate 04/17/17 04/17/17 04/17/17 21:00 21:00 21:00 WBC 19.22 H RBC 4.29 L Hgb 11.9 L Hct 38.8 L MCV 90.4 MCH 27.7 MCHC 30.7 L RDW Std Deviation 14.8 H Plt Count 208 MPV 11.0 H Immature Gran % (Auto) 0.3 Neut % (Auto) 90.5 H Lymph % (Auto) 4.3 L [place] % (Auto) 4.4 Eos % (Auto) 0.4 Baso % (Auto) 0.1 Immature Gran # (Auto) 0.06 H Neut # (Auto) 17.39 H Lymph # (Auto) 0.82 L [place] # (Auto) 0.85 H Eos # (Auto) 0.08 Baso # (Auto) 0.02 PT 11.1 INR 1.05 PTT (Actin FS) 27.7 D-Dimer 0.99 H Specimen Type Sample Site pH pCO2 pO2 HCO3 Base Excess Oxyhemoglobin ABG O2 Sat (Calculated) ABG O2 Saturation ABG Carboxyhemoglobin ABG Methemoglobin David Test A-a O2 Difference Total Hemoglobin Lactate Liter Flow Blood Gas Modality FiO2 % Sodium Potassium Chloride Carbon Dioxide Anion Gap BUN Creatinine Estimated GFR/1.73 m2 BUN/Creatinine Ratio Glucose Calculated Osmolality Calcium Magnesium Total Bilirubin AST ALT Alkaline Phosphatase Creatine Kinase Troponin T Bcg-B-Amiomtgibag Pept Total Protein Albumin Globulin Albumin/Globulin Ratio Plasma Lactate 04/17/17 04/17/17 21:00 21:37 WBC RBC Hgb Hct MCV MCH MCHC RDW Std Deviation Plt Count MPV Immature Gran % (Auto) Neut % (Auto) Lymph % (Auto) [place] % (Auto) Eos % (Auto) Baso % (Auto) Immature Gran # (Auto) Neut # (Auto) Lymph # (Auto) [place] # (Auto) Eos # (Auto) Baso # (Auto) PT INR PTT (Actin FS) D-Dimer Specimen Type ARTERIAL Sample Site R RADIAL pH 7.40 pCO2 49 H pO2 67 HCO3 28.5 H Base Excess 4.6 H Oxyhemoglobin 95.1 ABG O2 Sat (Calculated) 16.3 ABG O2 Saturation 97.5 ABG Carboxyhemoglobin 1.60 ABG Methemoglobin 0.8 David Test YES A-a O2 Difference 100.0 Total Hemoglobin 12.2 Lactate 0.60 Liter Flow 3.0 Blood Gas Modality CANNULA FiO2 % 32.0 Sodium Potassium Chloride Carbon Dioxide Anion Gap BUN Creatinine Estimated GFR/1.73 m2 BUN/Creatinine Ratio Glucose Calculated Osmolality Calcium Magnesium Total Bilirubin AST ALT Alkaline Phosphatase Creatine Kinase Troponin T Ftb-W-Rjhaekrvsyd Pept Total Protein Albumin Globulin Albumin/Globulin Ratio Plasma Lactate 0.9 Orders Category Date Time Status Oxygen Therapy- ED Nursing DIRECTED Care 04/17/17 18:49 Active CHEST-2 VIEWS [RAD] Stat Exams 04/17/17 18:[address] THORAX W/O CONTRAST [CT] Stat Exams 04/17/17 21:39 Taken ABG [RESP] Routine Lab 04/17/17 21:37 Completed CBC WITH ELECTRONIC DIFF [HEME] Stat Lab 04/17/17 21:00 Completed CK PROFILE [SP CHEM] Stat Lab 04/17/17 20:45 Completed COMPREHENSIVE METABOLIC PANEL [CHEM] Stat Lab 04/17/17 20:45 Completed D-DIMER [CHEM] Stat Lab 04/17/17 21:00 Completed LACTATE, PLASMA [CHEM] Stat Lab 04/17/17 21:00 Completed MAGNESIUM [CHEM] Stat Lab 04/17/17 20:45 Completed PRO B-NATRIURETIC PEPTIDE Stat Lab 04/17/17 20:45 Completed PROTIME WITH INR [COAG] Stat Lab 04/17/17 21:00 Completed PTT [COAG] Stat Lab 04/17/17 21:00 Completed TROPONIN T Stat Lab 04/17/17 20:45 Completed Acetaminophen [Tylenol] Med 04/17/17 21:08 Discontinued 650 mg .ROUTE .STK-MED ONE Acetaminophen [Tylenol] Med 04/17/17 21:04 Discontinued 650 mg PO NOW ONE Aspirin Med 04/17/17 18:49 Discontinued 325 mg PO STAT STA Piperacillin/Tazobactam [Zosyn] 3.375 gm Med 04/17/17 21:38 Discontinued 0.9% Sodium Chloride Inj [Ns] 50 ml IV NOW Prednisone Med 04/17/17 20:52 Discontinued 60 mg .ROUTE .STK-MED ONE Prednisone Med 04/17/17 20:16 Discontinued 60 mg PO NOW ONE Vancomycin 1 gm/Ns Med 04/17/17 22:15 Discontinued 1 gm in 250 ml .ROUTE As Directed Vancomycin 1 gm/Ns Med 04/17/17 21:38 Discontinued 1 gm in 250 ml IV NOW EKG [EKG] Stat Ther 04/17/17 18:49 Ordered Result Diagrams: 04/17/17 21:00 04/17/17 20:45 - REASSESSMENT Reassessment #2 Status: unchanged (spoke to Dr Osborne for admission) Departure - Departure Date of Disposition Decision: 04/17/17 Time of Disposition Decision: 21:53 DIAGNOSIS: COPD exacerbation, Pneumonia Disposition: ADMITTED INPATIENT 09 Certified Medical Emergency: Emergent Condition: Stable Additional Freetext Instructions: PLEASE TAKE MEDS PRESCRIBED AND FOLLOW UP WITH YOUR PHYSICIANS. Referrals and Follow-Ups: Galileo Mckeon MD [Primary Care Provider] - - Critical Care Note This patient required my direct & personal management of CC.: No Attestation - Physician/ INDY Attestation Patient care was provided by Advanced Practice Provider:: No The physician spent face to face time with patient:: Yes Advanced Practice Provider documentation review:: Supervising physician onsite and consulted in the evaluation and care of this patient. The physician did have a face to face encounter with the patient.
[2017-04-17] MEDS ORDERED: PREDNISONE PO ONE (20:16)
[2017-04-17] MEDS ORDERED: PREDNISONE ONE (20:52)
[2017-04-17] MEDS ORDERED: TYLENOL PO ONE (21:04)
[2017-04-17] MEDS ORDERED: TYLENOL ONE (21:08)
[2017-04-17 21:13] LABS: BASO% 0.1 % (0.0-0.8); EOS# 0.08 X1000 (0.0-0.7); EOS% 0.4 % (0.0-10.0); HEMATOCRIT 38.8 % (42.0-52.0); HEMOGLOBIN 11.9 g/dL (14.0-18.0); IMM GRAN# 0.06 X1000 (0.0-0.04); IMM GRAN% 0.3 % (0.0-0.5); LYMPH# 0.82 X1000 (1.2-3.4); LYMPH% 4.3 % (20.5-51.1); MANUAL DIFF NEEDED? NO; MCH 27.7 PG (27-31); MCHC 30.7 g/dL (33-37); MCV 90.4 FL (81-99); MONO# 0.85 X1000 (0.11-0.59); MONO% 4.4 % (1.7-9.3); NEUT% 90.5 % (42.2-75.2); PLT 208 X1000 (130-400); RBC 4.29 XMIL (4.7-6.1)
[2017-04-17 21:21] LABS: INR 1.05; PROTIME 11.1 Seconds (9.2-11.7); PTT 27.7 Seconds (22.0-36.0)
[2017-04-17 21:37] LABS: ALBUMIN 3.8 g/dL (3.5-5.0); CALCIUM 9.1 mg/dL (8.8-10.2); MAGNESIUM 1.8 mg/dL (1.5-2.7); POTASSIUM 4.2 mmol/L (3.5-5.1); TOTAL BILIRUBIN 0.31 mg/dL (0.20-1.00); TOTAL PROTEIN 7.2 g/dL (6.3-8.3)
[2017-04-17] MEDS ORDERED: VANCOMYCIN 1 GM/NS 1 GM/250 ML IVPB IV ONE (21:38)
[2017-04-17] MEDS ORDERED: ZOSYN 3.375 GM in NS 50 ML IV ONE (21:38)
[2017-04-17 21:58] LABS: ALLEN TEST YES; BE 4.6 mmoll (-3.0-3.0); BLOOD TYPE ARTERIAL; DRAW SITE R RADIAL; METHB 0.8 % (0.0-1.5); O2(CT) 16.3 mL/dL (15.0-23.0); PCO2(98.6) 49 mmHg (35-45); PO2(98.6) 67 mmHg (60-100); SAMPLE BLOOD; SAO2 97.5 % (95.0-100.0); THB 12.2 g/dL (11.5-17.4)
[2017-04-17 21:59] LABS: MODALITY CANNULA
[2017-04-17] MEDS ORDERED: VANCOMYCIN 1 GM/NS 1 GM/250 ML IVPB ONE (22:15)
[2017-04-17] MEDS ORDERED: DUONEB (A & A) INH ONE (23:05)
[2017-04-18] MEDS ORDERED: SOLU-MEDROL IV SCH (03:06)
[2017-04-18] MEDS ORDERED: TYLENOL WITH CODEINE #3 PO PRN (03:06)
[2017-04-18] MEDS: ROCEPHIN 1 GM in NS 50 ML IV SCH (03:25)
[2017-04-18] MEDS: NS 1,000 ML IV SCH ×2 (03:25→15:12)
--- NOTE | 2017-04-18 05:15 | EKG Report ---
Test Performed on : 04/17/2017 6:53:41 PM Test Reason : Chest Pain Blood Pressure : / mmHG Vent. Rate : 121 BPM Atrial Rate : 121 BPM P-R Int : 178 ms QRS Dur : 090 ms QT Int : 298 ms P-R-T Axes : 079 043 083 degrees QTc Int : 423 ms Sinus tachycardia. Left ventricular hypertrophy with repolarization abnormality Inferior infarct , age undetermined Abnormal ECG When compared with ECG of 17-APR-2017 18:51, (Unconfirmed) Previous ECG has undetermined rhythm, needs review Unconfirmed Result
--- NOTE | 2017-04-18 05:45 | HISTORY AND PHYSICAL ---
PRIMARY CARE PROVIDER: None. CHIEF COMPLAINT: Shortness of breath. HISTORY OF PRESENT ILLNESS: Mr. Byrne is a 71-year-old gentleman with past medical history of COPD, oxygen dependent on 2 L, hypertension, hyperlipidemia, coronary artery disease, hepatitis C, who comes to the hospital complaining of shortness of breath. The patient states that he has been coughing more than usual. Has greenish sputum more than usual and he has increased demand of oxygen. He is usually on 2-3 L. Today, he was using up to 4 L at home. The patient states that this morning, he was in a restaurant and started having chills. He felt very cold and his family took him to the car and turned on the heater. The patient states that he does not remember anything between getting into the car and coming to the hospital. The patient does not remember having loss of consciousness and no one else in the room with the patient to confirm if he had loss of consciousness. REVIEW OF SYSTEMS: Positive for shortness of breath. Patient denies chest pain, dizziness, headache, nausea or vomiting. All other systems are negative except as stated above. PAST MEDICAL HISTORY: 1. COPD on home oxygen. 2. Hypertension. 3. Hyperlipidemia. 4. Coronary artery disease status post stent placement. 5. Hepatitis C. 6. History of diabetes mellitus. The patient denies taking any current medications. PAST SURGICAL HISTORY: Appendectomy and cardiac stent placement. SOCIAL HISTORY: The patient says that he stopped smoking in 1981. The patient states that he has not drunk alcohol for the last 15 years. However, in his last H P of January 2017, it was stated that patient was still drinking alcohol. The patient denies using illicit drugs. FAMILY HISTORY: Per previous records, positive for coronary artery disease. The patient states that he cannot remember any other conditions. ALLERGIES: Ciprofloxacin, doxycycline and tetracyclines. HOME MEDICATIONS: 1. Aspirin 325 mg tablet oral daily. 2. Pravastatin 40 mg at bedtime. 3. Combivent 1 puff inhaled. 4. [place] 7.5 mg t.i.d. p.r.n. pain. 5. Xanax p.o. for anxiety. 6. Albuterol nebulizer treatments every 4 hours p.r.n. shortness of breath. DIAGNOSTIC LABORATORY RESULTS: White blood cell count 19.2, hemoglobin 12, hematocrit 39, platelets 208,000. Sodium 139, potassium 4.2, bicarbonate 27, BUN 23, creatinine 1.4. LFTs slightly increased. AST 51, ALT 60. Troponin #1 negative. BNP 832. Plasma lactate 0.9. DIAGNOSTIC IMAGING: Chest x-ray, shows evidence of COPD with fibrosis, particularly at the left base. Stable chest x-ray from previous imaging. CT was ordered. Official read is still pending. PHYSICAL EXAMINATION: VITAL SIGNS: Temperature 100.3 degrees, pulse 100, respirations 26, blood pressure 126/66. Oxygen saturation 94% on 3 L nasal cannula. GENERAL: Patient is alert and oriented x3. No acute distress. HEENT: Head is normocephalic, atraumatic. Eyes, STU. Moist mucous membranes. NECK: Supple. No JVD. PULMONARY: The patient has mild bilateral wheezing in all lung couch. Fine crackles noted bilaterally in the bases. CARDIOVASCULAR: S1, S2. No rubs, murmurs, or gallops. ABDOMEN: Soft, nondistended, nontender. EXTREMITIES: No cyanosis, clubbing, or edema noted. NEUROLOGIC: Cranial nerves 2-12 grossly intact. PSYCH: Normal mood and affect. ASSESSMENT AND PLAN: 1. Chronic obstructive pulmonary disease exacerbation. The patient will be given twice a day Pulmicort and Brovana and p.r.n. DuoNebs. The patient will be started on Solu-Medrol 125 mg every 6 hours and on ceftriaxone every 24 hours. The patient requested Tylenol 3 which helps him with air hunger. 2. Acute kidney injury. BUN is slightly increased. Creatinine 1.4. We will provide fluids. Patient is likely dehydrated. 3. Coronary artery disease. We will continue patient's home medication, aspirin and pravastatin. 4. Hyperlipidemia. Continue home medication pravastatin. 5. Question of diabetes type 2. The patient does not take any medication. A1c is pending for tomorrow. cc: Gabriela Osborne MD
[2017-04-18] MEDS ORDERED: BROVANA NEB ONE (07:26)
[2017-04-18] MEDS ORDERED: PULMICORT ONE (07:26)
[2017-04-18] MEDS ORDERED: BROVANA NEB INH SCH (07:30)
[2017-04-18] MEDS: PULMICORT INH SCH ×2 (07:46→19:26)
[2017-04-18] MEDS ORDERED: DUONEB (A & A) INH PRN (08:19)
--- NOTE | 2017-04-18 08:28 | Diag Imaging Result Doc PS360 ---
EXAM: CT THORAX W/O CONTRAST - 04/17/2017 HISTORY: dyspnea, hypoxia, copd TECHNIQUE: Without contrast per request the referring provider. Dose reduction protocol. COMPARISON: CT angiogram pulmonary arteries of 12/20/2016 FINDINGS: There are severe emphysematous changes similar to the previous exam. There are perihilar opacities at the left lingula and left lower lobe which appears stable, suggesting scarring. There is a 15 mm cavitary opacity of the left lower lobe which is stable in size but has thicker tavera compared to previous exam. This may represent an infected bleb, although malignancy cannot be entirely excluded. There is a 9 x 5 mm nodule at the posterior right upper lobe which is decreased slightly in size and has smooth margins compared to the previous exam. There are stable nonspecific small mediastinal lymph nodes. There are coronary artery calcifications noted. There is infiltrate at the inferior left lower lobe which is most dense posteriorly. Pneumonia cannot be excluded. There is no pleural effusion or pneumothorax identified. IMPRESSION: Severe emphysematous changes. Some pulmonary scarring. Slight decrease in size of nodular density at posterior right upper lobe. 15 mm cavitary lesion left lower lobe which is stable in size and has thickened wall compared to previous exam. This may represent infected bleb, although malignancy cannot be entirely excluded. Follow-up is recommended. Infiltrating inferior left lower lobe, suspicious for pneumonia. There are coronary artery calcifications noted. The cotton acreage measurer radiologist provided primary results at 10:33 PM on 04/17/2017. Electronically signed by Sebastián Ingram 04/18/2017 8:26 AM
[2017-04-18] MEDS: SOLU-MEDROL IV SCH ×3 (09:26→21:01)
[2017-04-18] MEDS: HEPARIN SUBQ SCH ×2 (09:26→21:01)
[2017-04-18] MEDS: ASPIRIN EC PO SCH (09:26)
[2017-04-18] MEDS: XANAX PO SCH ×2 (09:30→21:01)
[2017-04-18] MEDS: DUONEB (A & A) INH SCH ×4 (11:09→23:00)
[2017-04-18] MEDS: NORCO-7.5 PO PRN (11:32)
[2017-04-18] MEDS ORDERED: PRAVACHOL PO SCH (21:00)
[2017-04-18] MEDS ORDERED: TUMS PO PRN (23:00)
[2017-04-19] MEDS: SOLU-MEDROL IV SCH ×2 (03:30→09:53)
[2017-04-19] MEDS: ROCEPHIN 1 GM in NS 50 ML IV SCH (03:30)
[2017-04-19] MEDS: DUONEB (A & A) INH SCH ×3 (03:42→11:47)
[2017-04-19 07:00] LABS: HEMATOCRIT 31.2 % (42.0-52.0); HEMOGLOBIN 9.7 g/dL (14.0-18.0); MCH 28.5 PG (27-31); MCHC 31.1 g/dL (33-37); MCV 91.8 FL (81-99); MPV 11.3 FL (7.4-10.4); RBC 3.4 XMIL (4.7-6.1)
[2017-04-19 07:16] LABS: CALCIUM 8.5 mg/dL (8.8-10.2); HEMOGLOBIN A1C 5.1 % (4.8-6.0); POTASSIUM 4.2 mmol/L (3.5-5.1)
[2017-04-19 08:08] VITALS: BP 141/57
[2017-04-19] MEDS: PULMICORT INH SCH (08:24)
[2017-04-19] MEDS ORDERED: ZITHROMAX 500 MG/NS 500 MG/250 ML IVPB IV SCH (09:00)
[2017-04-19] MEDS: NORCO-7.5 PO PRN (09:53)
[2017-04-19] MEDS: XANAX PO SCH (09:53)
[2017-04-19] MEDS: ASPIRIN EC PO SCH (09:54)
[2017-04-19] MEDS: HEPARIN SUBQ SCH (09:55)
[2017-04-19] MEDS ORDERED: MEDROL DOSEPAK PO SCH (11:45)
[2017-04-19] MEDS ORDERED: MEDROL PO SCH (12:00)
[2017-04-19] MEDS ORDERED: DOXYCYCLINE PO SCH (21:00)
[2017-04-19] MEDS ORDERED: KEFLEX PO SCH (21:00)
--- NOTE | 2017-04-20 07:33 | DISCHARGE SUMMARY ---
ADMISSION DATE: 04/18/2017 DISCHARGE DATE: 04/19/2017 CONSULTATIONS: None. PERTINENT PROCEDURES: Chest CT showed severe emphysematous changes with some pulmonary scarring, slight decrease in the size of nodular density at the posterior right upper lobe. 15 mm cavitary lesion left lower lobe which is stable size and has thickened wall compared to previous exam. May represent infective bleb although malignancy cannot be entirely excluded. Follow-up is recommended. Infiltrating inferior left lower lobe suspicious for pneumonia. There are coronary artery calcifications noted. DISCHARGE DIAGNOSES: 1. Chronic obstructive pulmonary disease exacerbation improved. Continue on home bronchodilators. Z-Fadi, Keflex and Medrol Dosepak. 2. Acute kidney injury improved. 3. Coronary artery disease. Continue home medications. 4. Hyperlipidemia. Continue statin. 5. Questionable diabetes. Hemoglobin A1c was 5.1, ruled out. Estimated average glucose was 100. 6. Pneumonia. The patient will continue on p.o. antibiotics. HOSPITAL COURSE: Mr. Juan Byrne is a 71-year-old, male who is very well known to our service for multiple admissions for COPD O2 dependent, hypertension, hyperlipidemia, coronary artery disease, hepatitis C who came to the hospital again complaining of shortness of breath and coughing more than usual, greenish sputum more than usual, and increased demand of his home O2. He is usually on 2-3 L. He had to up it to 4 at home. On the morning of his admission, he was at a restaurant where he started having chills. He felt very cold. His family took him to the car where they turned on the heater and he did not remember anything between getting into the car and coming to the hospital. Family in the room stated that the patient did not have any loss of consciousness. Laboratory Data in the ED showed a white count of 19, lactate of 0.9. LFTs were slightly increased. Chest x-ray showed evidence of COPD with fibrosis particularly at the left base. He was admitted for COPD exacerbation and started on Pulmicort, Brovana and p.r.n. DuoNeb's as well as IV Solu-Medrol, ceftriaxone and Tylenol 3 to help with his air hunger. He did have an acute kidney injury. He was given IV fluids and continued on his home medications. They also ordered a CT scan of his chest. It did show infiltrate at the left lower lobe suspicious for pneumonia and a 15 mm cavitary lesion at the left lower lobe stable in size. Recommended follow up. His acute kidney injury did improve with IV fluids. He did have a jump in his white count secondary to IV steroids. He has been afebrile since his admission. The patient is requesting to go home today. He is being discharged home and he will follow up with Dr. Navarro as well as follow up with recommended imaging as seen on his CT scan. He has a follow-up appointment with his PCP on 04/29/2017. VITAL SIGNS AT TIME OF DISCHARGE: Temperature was 97.6 degrees, heart rate 84, respirations 20, blood pressure 141/57, O2 is 99% on 02 L nasal cannula. DISCHARGE DIET: Healthy heart. DISCHARGE MEDICATIONS: 1. As per Dr. Tuttle. 2. Albuterol nebulizer 2.5 mg inhaled RT q.4 hours. 3. Xanax 0.5 mg p.o. b.i.d. 4. Aspirin 325 mg p.o. daily. 5. Z-Fadi as directed. 6. Pulmicort 0.25 mg inhaled RT b.i.d. 7. Keflex 500 mg p.o. q.12 hours. 8. [place] 7.5, 1 each p.o. q.8 hours p.r.n. 9. Combivent rescue inhaler 1 each inhaled daily. 10. Mobic 15 mg p.o. daily. 11. Medrol dose pack 4 mg p.o. as directed. 12. Pravachol 40 mg p.o. at bedtime. FOLLOWUP: Mr. Byrne is being discharged home with his home O2. He is to follow up with his primary care doctor Dr. Ahmet Gurrola. He already has an appointment on [address] Navarro in 2 weeks. He can return to the ED for any worsening of symptoms. He is to complete all antibiotics as prescribed. I personally evaluated this patient face to face, images, vitals signs and lab work were reviewed, he is feeling better, he needs to follow up with his lung doctor, continue with his treatment and oxygen at home , I agree with the assessment and plan for this patient, and can be discharged today, Don Garibay MD Dictated by QING Oliveros for Don Robertson MD cc: Don Robertson MD MTDD
[2017-04-20] MEDS ORDERED: ZITHROMAX PO SCH (09:00)
== END 2017-04-19 14:04 | disposition home or self-care (01) ==
LOC: ED 18:30 → 3N 04-18 02:17 → SUATTDRO 04-18 02:17
PROVIDERS: ATTEND Internal Medicine

== ENCOUNTER 2017-05-07 12:57 | Inpatient (IN) ==
[2017-05-07] MEDS ORDERED: DUONEB (A & A) INH ONE (13:48)
[2017-05-07] MEDS ORDERED: SOLU-MEDROL IV ONE (13:49)
[2017-05-07 13:58] LABS: BASO% 0.2 % (0.0-0.8); EOS# 0.03 X1000 (0.0-0.7); EOS% 0.1 % (0.0-10.0); HEMATOCRIT 39.6 % (42.0-52.0); HEMOGLOBIN 12.1 g/dL (14.0-18.0); IMM GRAN# 0.06 X1000 (0.0-0.04); IMM GRAN% 0.3 % (0.0-0.5); LYMPH# 2.02 X1000 (1.2-3.4); LYMPH% 9.3 % (20.5-51.1); MANUAL DIFF NEEDED? NO; MCH 28.2 PG (27-31); MCHC 30.6 g/dL (33-37); MCV 92.3 FL (81-99); MONO# 1.64 X1000 (0.11-0.59); MONO% 7.6 % (1.7-9.3); MPV 11.1 FL (7.4-10.4); NEUT% 82.5 % (42.2-75.2); PLT 223 X1000 (130-400); RBC 4.29 XMIL (4.7-6.1)
--- NOTE | 2017-05-07 13:59 | Diag Imaging Result Doc PS360 ---
EXAM: CHEST-PORTABLE HISTORY: SOB TECHNIQUE: AP portable upright at 1350 COMMENT: There is ill-defined opacity in the right lower lobe and to a lesser extent the left base. This is worse than on the previous study of 04/29/2017. The inspiration is less optimal however. IMPRESSION: Pneumonia and/or pulmonary edema. Electronically signed by Lauri Fowler 05/07/2017 1:56 PM
[2017-05-07 15:09] LABS: ALBUMIN 3.8 g/dL (3.5-5.0); CALCIUM 9.3 mg/dL (8.8-10.2); POTASSIUM 4.5 mmol/L (3.5-5.1); TOTAL BILIRUBIN 0.49 mg/dL (0.20-1.00); TOTAL PROTEIN 7.2 g/dL (6.3-8.3)
[2017-05-07 16:05] LABS: URINE MICRO REVIEW NEEDED? NO; URINE SOURCE VOIDED
[2017-05-07 16:10] LABS: BILIRUBIN URINE NEGATIVE (NEGATIVE); BLOOD URINE TRACE (NEGATIVE); COLOR YELLOW; GLUCOSE URINE NEGATIVE (NEGATIVE); LEUKOCYTES URINE NEGATIVE (NEGATIVE); NITRITE URINE NEGATIVE (NEGATIVE); PROTEIN URINE 30 mg/dL (NEGATIVE); SP GRAVITY URINE 1.022; TURBIDITY URINE CLEAR (CLEAR); UR EPITHELIAL CELLS <10 /HPF (<10); URINE BACTERIA NEGATIVE /HPF; URINE RBC <10 /HPF (<10); URINE WBC <10 /HPF (<10); UROBILINOGEN URINE NORMAL (NORMAL)
[2017-05-07] MEDS ORDERED: ROCEPHIN 1 GM in NS 50 ML IV ONE (16:52)
[2017-05-07 17:02] LABS: ALLEN TEST YES; BE 7.8 mmoll (-3.0-3.0); BLOOD TYPE ARTERIAL; DRAW SITE L RADIAL; METHB 1.4 % (0.0-1.5); O2(CT) 15.8 mL/dL (15.0-23.0); PO2(98.6) 80 mmHg (60-100); SAMPLE BLOOD; SAO2 97.5 % (95.0-100.0); THB 11.8 g/dL (11.5-17.4)
[2017-05-07 17:03] LABS: MODALITY CANNULA
[2017-05-07 17:04] LABS: PCO2(98.6) 55 mmHg (35-45)
--- NOTE | 2017-05-07 17:40 | PROVIDER DOCUMENTATION ---
This chart was entered by Sheeba Bell Scribe, acting as scribe for Corey Singh DO. HPI-Respiratory General - General Chief Complaint: Shortness of Breath Stated Complaint: sob Time Seen by Provider: 05/07/17 13:06 Source: patient Allergies/Adverse Reactions: Patient Allergies Allergy/AdvReac Type Severity Reaction Status Date / Time ciprofloxacin [From Cipro] AdvReac Severe SEIZURES Verified 05/07/17 13:43 doxycycline AdvReac Severe SEIZURES Verified 05/07/17 13:43 Home Medications: Home Medication List Medication Instructions Recorded Confirmed Last Taken Type Albuterol [Albuterol Neb] 2.5 mg INH RTQ4H 07/16/15 05/07/17 05/07/17 10:00 History PRAVAstatin [Pravachol] 40 mg PO QHS 11/10/15 05/07/17 05/06/17 20:00 History Aspirin EC 325 mg PO DAILY 01/22/17 05/07/17 05/07/17 10:00 History Ipratropium/Albuterol INH 1 each INH DAILY 01/22/17 05/07/17 05/07/17 10:00 History [Combivent Respimat Inhaler] Meloxicam [Mobic] 15 mg PO DAILY #20 tablet 04/05/17 05/07/17 05/07/17 10:00 Rx Alprazolam [Xanax] 1 each PO BID #20 tablet 04/19/17 05/07/17 05/07/17 10:00 Rx Budesonide [Pulmicort] 0.25 mg INH RTBID #1 neb 04/19/17 05/07/17 05/07/17 10: 00 Rx Hydrocodone/APAP 10 mg/325 mg 1 tab PO 4XDAY 05/07/17 05/07/17 05/07/17 10:00 History [Assumption-10] - History of Present Illness-Resp Nature of Presenting Problem: Pt is a 71 y/o M presents to the ED with SOB and cough. Pt states symptoms have been present for 2 days. Pt states intermittent chest pain. Pt state productive cough with white sputum. Pt denies fever. Pt states hx of COPD. Quality of Pain: reports: tightness Severity in ED: reports: mild Onset/Duration: reports: 2 days ago Timing: reports: still present Cough Quality/Degree: reports: moderate, productive cough, sputum (white) Episode Frequency: chronic episodes Current Respiratory Medication Therapy: Initiated see nurses note Modifying Factors: improves with: nothing Associated Symptoms: reports: chest pain/soreness (intermittent), cough, shortness of breath Similar Symptoms Previously?: Yes (present for 2 days ) Recently seen or treated by another doctor?: Yes (seen in ED 8 days ago ) Review of Systems - Adult - REVIEW OF SYSTEMS - ADULT Constitutional: reports: no symptoms reported Eyes: reports: no symptoms reported Ears, Nose, Mouth & Throat: reports: no symptoms reported Cardiovascular: reports: chest pain. denies: heart murmur, irregular heart rate Respiratory: reports: cough, shortness of breath. denies: wheezing Gastrointestinal: reports: no symptoms reported Genitourinary: reports: no symptoms reported Musculoskeletal: reports: no symptoms reported Integumentary: reports: no symptoms reported Neurological: reports: no symptoms reported Psychiatric: reports: no symptoms reported Endocrine: reports: no symptoms reported Hematologic/Lymphatic: reports: no symptoms reported Allergic/Immunologic: reports: no symptoms reported All Other Systems: Reviewed and Negative Past History - Adult - PAST MEDICAL HISTORY-ADULT Review of Records: reports: Nursing Assessment Review, Medications Reviewed, Social history reviewed & non-contributory. Major Childhood Illnesses: reports: denies history Cardiovascular: reports: cardiac disease, CAD, CHF, HTN, hyperlipidemia, [place] Respiratory: reports: asthma, COPD (on home o2), sleep apnea Gastrointestinal: reports: denies history Obstetrical/Gynecological: reports: denies history Genitourinary: reports: denies history Musculoskeletal: reports: arthritis, chronic pain, intervertebral disc disease, neck/back injury Neurological: reports: Seizures/Epilepsy Endocrine/Immune: reports: Diabetes Other Conditions: reports: MRSA, psoriasis Additional History: Freq ER visits for COPD; 2L of O2 13/03 dependent - PRIOR SURGERIES/PROCEDURES Surgical/Procedure History: reports: appendectomy, cardiac stent - IMMUNIZATION STATUS Childhood Immunizations: See Nurse Assessment Flu Vaccine: See Nurse Assessment - FAMILY HISTORY Family History: reviewed, not pertinent - SOCIAL HISTORY Smoking: quit greater than 1 year, cigarettes, chew, less than 1 pack/day Provider spent 3-5 mins advising pt. on dangers of tobacco.: Discussed manners to quit use, and f/u contacts for add'l counseling. Substance Use: denies Living Situation: family Physical Exam-General - PHYSICAL EXAM-ADULT Initial Vital Signs Reviewed: Yes - CONSTITUTIONAL General Appearance: appears well, alert, no apparent distress. negative: lethargic, slow to respond - EYES Eyes: PERRL/EOMI, pink conjunctivae. negative: pale conjunctivae, sunken eyes - HEAD, EARS, NOSE, MOUTH & THROAT HENMT: normal ENT inspection. negative: angioedema, hearing deficit - NECK Neck: normal inspection. negative: lymphadenopathy, tender lateral - RESPIRATORY Respiratory: chest non-tender, wheezing (bilateral), increased rate. negative: crackles, rhonchi - CARDIOVASCULAR Cardiovascular: normal peripheral pulses, regular rate, rhythm. negative: tachycardia, systolic murmur - GASTROINTESTINAL (ABDOMEN) Abdominal Exam: normal bowel sounds, non tender, soft. negative: distended, rebound - LYMPHATIC Lymphatic: no adenopathy. negative: enlargement, streaking - MUSCULOSKELETAL Back Exam: normal inspection, no CVA tenderness, no vertebral tenderness. negative: ecchymosis, swelling, vertebral tenderness Extremity: normal inspection. negative: deformity, erythema, swelling - SKIN Integumentary: normal color, normal turgor, warm/dry. negative: diaphoresis, ecchymosis, erythema, laceration(s), swelling - NEUROLOGIC Neurologic: grossly normal. negative: aphasia, facial droop - PSYCHIATRIC Psych/Mental Status: normal mood/affect, oriented x 3. negative: paranoid, tearful Progress - PLAN OF CARE/RESULTS Progress/Plan/Lab Results: Vital Signs - 8 hr 05/07/17 13:05 05/07/17 14:02 Temperature 98.6 F Pulse Rate 61 62 Respiratory Rate 26 H 18 Blood Pressure 130/93 O2 Sat by Pulse Oximetry 96 93 L Laboratory Results - last 24 hr 05/07/17 05/07/17 05/07/17 13:38 13:38 13:38 WBC 21.67 H RBC 4.29 L Hgb 12.1 L Hct 39.6 L MCV 92.3 MCH 28.2 MCHC 30.6 L RDW Std Deviation 15.2 H Plt Count 223 MPV 11.1 H Immature Gran % (Auto) 0.3 Neut % (Auto) 82.5 H Lymph % (Auto) 9.3 L [place] % (Auto) 7.6 Eos % (Auto) 0.1 Baso % (Auto) 0.2 Immature Gran # (Auto) 0.06 H Neut # (Auto) 17.88 H Lymph # (Auto) 2.02 [place] # (Auto) 1.64 H Eos # (Auto) 0.03 Baso # (Auto) 0.04 D-Dimer Specimen Type Sample Site pH pCO2 pO2 HCO3 Base Excess Oxyhemoglobin ABG O2 Sat (Calculated) ABG O2 Saturation ABG Carboxyhemoglobin ABG Methemoglobin David Test A-a O2 Difference Total Hemoglobin Lactate Liter Flow Blood Gas Modality FiO2 % Sodium 137 Potassium 4.5 Chloride 95 L Carbon Dioxide 28 Anion Gap 14 BUN 22 Creatinine 1.2 Estimated GFR/1.73 m2 60 BUN/Creatinine Ratio 18 Glucose 109 H Calculated Osmolality 278 Calcium 9.3 Total Bilirubin 0.49 AST 81 H ALT 100 H Alkaline Phosphatase 78 Troponin T < 0.010 Utm-O-Tlearbglxlv Pept Total Protein 7.2 Albumin 3.8 Globulin 3.4 Albumin/Globulin Ratio 1.1 Plasma Lactate Urine Source Urine Color Urine Turbidity Urine pH Ur Specific [place] Urine Protein Ur Glucose (Stick) Ur Ketones (Stick) Urine Blood Urine Nitrite Urine Bilirubin Urobilinogen Dipstick Urine Leukocytes Urine WBC (Auto) Urine RBC (Auto) U Epithel Cells (Auto) Urine Bacteria (Auto) 05/07/17 05/07/17 05/07/17 13:38 13:38 13:50 WBC RBC Hgb Hct MCV MCH MCHC RDW Std Deviation Plt Count MPV Immature Gran % (Auto) Neut % (Auto) Lymph % (Auto) [place] % (Auto) Eos % (Auto) Baso % (Auto) Immature Gran # (Auto) Neut # (Auto) Lymph # (Auto) [place] # (Auto) Eos # (Auto) Baso # (Auto) D-Dimer 0.79 H Specimen Type Sample Site pH pCO2 pO2 HCO3 Base Excess Oxyhemoglobin ABG O2 Sat (Calculated) ABG O2 Saturation ABG Carboxyhemoglobin ABG Methemoglobin Davdi Test A-a O2 Difference Total Hemoglobin Lactate Liter Flow Blood Gas Modality FiO2 % Sodium Potassium Chloride Carbon Dioxide Anion Gap BUN Creatinine Estimated GFR/1.73 m2 BUN/Creatinine Ratio Glucose Calculated Osmolality Calcium Total Bilirubin AST ALT Alkaline Phosphatase Troponin T Ynj-[id number]-Kjwvragifdk Pept 2454 H Total Protein Albumin Globulin Albumin/Globulin Ratio Plasma Lactate 1.7 Urine Source Urine Color Urine Turbidity Urine pH Ur Specific [place] Urine Protein Ur Glucose (Stick) Ur Ketones (Stick) Urine Blood Urine Nitrite Urine Bilirubin Urobilinogen Dipstick Urine Leukocytes Urine WBC (Auto) Urine RBC (Auto) U Epithel Cells (Auto) Urine Bacteria (Auto) 05/07/17 05/07/17 16:00 16:53 WBC RBC Hgb Hct MCV MCH MCHC RDW Std Deviation Plt Count MPV Immature Gran % (Auto) Neut % (Auto) Lymph % (Auto) [place] % (Auto) Eos % (Auto) Baso % (Auto) Immature Gran # (Auto) Neut # (Auto) Lymph # (Auto) [place] # (Auto) Eos # (Auto) Baso # (Auto) D-Dimer Specimen Type ARTERIAL Sample Site L RADIAL pH 7.40 pCO2 55 H* pO2 80 HCO3 31.0 H Base Excess 7.8 H Oxyhemoglobin 94.8 L ABG O2 Sat (Calculated) 15.8 ABG O2 Saturation 97.5 ABG Carboxyhemoglobin 1.40 ABG Methemoglobin 1.4 David Test YES A-a O2 Difference 108.0 Total Hemoglobin 11.8 Lactate 1.20 Liter Flow 4.0 Blood Gas Modality CANNULA FiO2 % 36.0 Sodium Potassium Chloride Carbon Dioxide Anion Gap BUN Creatinine Estimated GFR/1.73 m2 BUN/Creatinine Ratio Glucose Calculated Osmolality Calcium Total Bilirubin AST ALT Alkaline Phosphatase Troponin T Qkv-M-Ucsjpkxqwbk Pept Total Protein Albumin Globulin Albumin/Globulin Ratio Plasma Lactate Urine Source VOIDED Urine Color YELLOW Urine Turbidity CLEAR Urine pH 6.0 Ur Specific [place] 1.022 Urine Protein 30 A Ur Glucose (Stick) NEGATIVE Ur Ketones (Stick) NEGATIVE Urine Blood TRACE A Urine Nitrite NEGATIVE Urine Bilirubin NEGATIVE Urobilinogen Dipstick NORMAL Urine Leukocytes NEGATIVE Urine WBC (Auto) <10 Urine RBC (Auto) <10 U Epithel Cells (Auto) <10 Urine Bacteria (Auto) NEGATIVE Orders Category Date Time Status cxr [CHEST-PORTABLE] [RAD] Stat Exams 05/07/17 13:44 Completed ABG [RESP] Routine Lab 05/07/17 16:53 Completed BNP [PRO B-NATRIURETIC PEPTIDE] Stat Lab 05/07/17 13:38 Completed CBC WITH ELECTRONIC DIFF [HEME] Stat Lab 05/07/17 13:38 Completed COMPREHENSIVE METABOLIC PANEL [CHEM] Stat Lab 05/07/17 13:38 Completed D-DIMER [CHEM] Routine Lab 05/07/17 13:38 Completed LACTATE, PLASMA [CHEM] Stat Lab 05/07/17 13:50 Completed TROPONIN T Stat Lab 05/07/17 13:38 Completed URINALYSIS [URINALYSIS] Routine Lab 05/07/17 16:00 Completed Albuterol 2.5MG/Ipratrop 0.5MG [Duoneb (A & A)] Med 05/07/17 13:48 Discontinued 3 ml INH NOW ONE CefTRIAXONE [Rocephin] 1 gm Med 05/07/17 16:52 Discontinued 0.9% Sodium Chloride Inj [Ns] 50 ml IV NOW Methylprednisolone Sod Succ [Solu-Medrol] Med 05/07/17 13:49 Discontinued 60 mg IV NOW ONE Aerosol Treatments Routine Oth 05/07/17 13:48 Completed Aerosol Treatments Stat Oth 05/07/17 13:48 Completed EKG [EKG] Stat Ther 05/07/17 13:46 Ordered Transfer/Admit Order [TRANSFER] Routine Transfer 05/07/17 17:20 Ordered This patient with h/o COPD on home oxygen came here with SOB and cough with yellow sputum. His CXR showed pneumonia and WBC count is elevated. Given Ceftriaxone,Duonebs and Solumedrol. Ordered ABG Result Diagrams: 05/07/17 13:38 05/07/17 13:38 - EKG 1 Time of EKG reading by physician:: 14:17 EKG Read and Signed by:: Juan Del Valle EKG Interpretation (*Must complete 3 of following elements*): Abnormal ( inferior infarct, age undetermined.) Rate: 117 Rhythm: sinus tachycardia Comments: left ventricular hypertrophy with repolarization abnormality. - XRAY 1 XRAY Study: Chest Impression: Abnormal XRAY Interpretation: Pneumonia and/or pulmonary edema - CONSULTS/PCP/HOSPITALIST Notification #1 *Consult/PCP/Hospitalist*: Dr. Duque Time Discussed: 17:19 Reason/Comments: Dr. Singh consulted with Dr. Duque about Pt Consult Disposition: Admit Departure - Departure Date of Disposition Decision: 05/07/17 Time of Disposition Decision: 17:39 DIAGNOSIS: COPD exacerbation Disposition: ADMITTED INPATIENT 09 Certified Medical Emergency: Emergent Condition: Critical Referrals and Follow-Ups: None,PCP [Primary Care Provider] - - Critical Care Note This patient required my direct & personal management of CC.: No Attestation - Physician/ INDY Attestation The physician spent face to face time with patient:: Yes Advanced Practice Provider documentation review:: Supervising physician onsite and consulted in the evaluation and care of this patient. The physician did have a face to face encounter with the patient. This chart was documented by the indicated scribe, (Sheeba Bell Scribe) and accurately reflects the services I performed and decisions made by me, Corey Singh DO, as attested by the provider's signature.
[2017-05-07] MEDS ORDERED: ZOFRAN IV PRN (18:34)
[2017-05-07] MEDS ORDERED: TYLENOL PO PRN (18:34)
[2017-05-07] MEDS: PULMICORT INH SCH (19:45)
[2017-05-07] MEDS: DUONEB (A & A) INH SCH ×2 (19:45→23:10)
[2017-05-07] MEDS: LASIX IV SCH (20:33)
[2017-05-07] MEDS: SOLU-MEDROL IV SCH (20:33)
[2017-05-07] MEDS: PRAVACHOL PO SCH (20:34)
[2017-05-07] MEDS: LOVENOX SUBQ SCH (20:34)
[2017-05-07] MEDS: XANAX PO SCH (20:34)
[2017-05-07] MEDS: NORCO-10 PO SCH (20:34)
[2017-05-07] MEDS: MAXIPIME 1 GM in NS 50 ML IV SCH (20:46)
[2017-05-08] MEDS: SOLU-MEDROL IV SCH ×4 (02:06→21:51)
[2017-05-08] MEDS: DUONEB (A & A) INH SCH ×6 (03:10→23:20)
[2017-05-08] MEDS: PRILOSEC PO SCH (06:26)
[2017-05-08] MEDS: LASIX IV SCH (06:26)
[2017-05-08 07:10] LABS: HEMATOCRIT 37.5 % (42.0-52.0); HEMOGLOBIN 11.2 g/dL (14.0-18.0); MCH 28.4 PG (27-31); MCHC 29.9 g/dL (33-37); MCV 95.2 FL (81-99); MPV 11.3 FL (7.4-10.4); RBC 3.94 XMIL (4.7-6.1)
[2017-05-08] MEDS: PULMICORT INH SCH ×2 (07:44→19:05)
[2017-05-08 07:51] LABS: CALCIUM 9.1 mg/dL (8.8-10.2); POTASSIUM 4.1 mmol/L (3.5-5.1)
--- NOTE | 2017-05-08 08:34 | Diag Imaging Result Doc PS360 ---
EXAM: CT THORAX W/O CONTRAST INDICATION: pneumonia TECHNIQUE: Dose reduction protocol was used. COMPARISON: 04/17/2017 FINDINGS: There is severe pulmonary emphysema. The infiltrate in the left lower lobe at the lung base has improved modestly during the interval. However, there has been development of a consolidation at the right lung base medially suggesting pneumonia. The cavitary lesion in the left lower lobe seen on the previous study is stable in size. However, the tavera of the lesion are less thickened. This probably represents an inflamed bleb that is improving. Bilateral patchy scarring is stable. There is a stable noncalcified nodule in the right upper lobe on image 40 of series 3 measuring up to 9 mm. There are no pleural fluid collections and no pneumothorax. There are calcified mediastinal and hilar lymph nodes indicating prior granulomatous disease. No new lymphadenopathy is appreciated. Limited views of the upper abdomen reveal a stable 1.5 cm hyperdense nodule arising from the left renal cortex. This may represent a blood filled/proteinaceous cyst but is nonspecific. Consider evaluation with contrast-enhanced CT. There is also a cyst density lesion involving the tail of the pancreas measuring up to 1.3 cm that was out of the [id number] on the previous study. Again, contrast enhanced CT of the abdomen and pelvis may be helpful if not contraindicated. IMPRESSION: 1.Severe emphysema. 2.Interval modest improvement of the consolidation at the left lung base. 3.Interval development of a somewhat milder consolidation at the right lung base. 4.Interval decrease in wall thickness of the cavitary lesion in the left lower lobe. Please see above discussion. 5.Stable right upper lobe pulmonary nodule. 6.Stable hyperdense left renal nodule. Please see above discussion. 7.Nonspecific cyst density lesion involving the pancreatic tail. Electronically signed by Maximino Miranda 05/08/2017 8:31 AM
[2017-05-08] MEDS: MOBIC PO SCH (08:36)
[2017-05-08] MEDS: XANAX PO SCH ×2 (08:36→21:50)
[2017-05-08] MEDS: ASPIRIN EC PO SCH (08:36)
[2017-05-08] MEDS: NORCO-10 PO SCH ×4 (08:36→22:40)
[2017-05-08] MEDS: MAXIPIME 1 GM in NS 50 ML IV SCH ×2 (08:37→21:58)
--- NOTE | 2017-05-08 10:03 | HISTORY AND PHYSICAL ---
CHIEF COMPLAINT: Shortness of breath. HISTORY OF PRESENT ILLNESS: This is a 71-year-old male with COPD and CHF, who comes in from home with a 2-3 day history of shortness of breath. He has had cough, which is productive. No hemoptysis. He usually is up to 3 L of oxygen, got progressively more short of breath and came in for evaluation. He denies fevers and chills. Denies lower extremity edema. He was admitted not too long ago, like at the beginning of the month that was a couple of weeks ago and I believe he had pneumonia then. Workup in the ER consistent with a COPD exacerbation and he has bronchopneumonia. He was admitted for that and COPD exacerbation. PAST MEDICAL HISTORY: 1. COPD on home oxygen dependent. 2. CAD, history of stent. No heart failure. His chest x-ray today shows more infiltrate at the right base, peribronchial cuffing, cephalization of the vessels, increasing interstitial edema. INCOMPLETE - DICTATION ENDS HERE cc: Gelacio Duque MD
[2017-05-08] MEDS: PRAVACHOL PO SCH (21:50)
[2017-05-08] MEDS: COLACE PO SCH (21:50)
[2017-05-08] MEDS: LOVENOX SUBQ SCH (21:52)
[2017-05-08] MEDS: MIRALAX PO SCH (21:52)
[2017-05-09] MEDS: DUONEB (A & A) INH SCH ×6 (02:27→22:23)
[2017-05-09] MEDS: SOLU-MEDROL IV SCH ×2 (02:49→09:07)
--- NOTE | 2017-05-09 03:58 | PROGRESS NOTE ---
DATE: 05/08/2017 SUBJECTIVE: The patient is resting comfortably in bed. He states that his shortness of breath has improved. He has not had a bowel movement yet. OBJECTIVE: Vital Signs: Temperature is 97.4 degrees, blood pressure 121/57, heart rate 84, respirations 20, O2 saturations 97% on 3 L nasal cannula. General: This is an elderly male, lying in bed, in no acute distress. Heart: S1, S2 normal. Regular rate and rhythm. Lungs: Coarse breath sounds with rhonchi bilaterally. Abdomen: Positive bowel sounds. Soft, nontender, nondistended. Extremities: No edema. No cyanosis. No calf tenderness. Neurologic: The patient is alert and oriented x4. LABORATORIES: White blood cell count 16, hemoglobin 11, hematocrit 37, platelets 169,000. Sodium 137, potassium 4.1, chloride 94, CO2 of 25, BUN 28, creatinine 1.3, glucose 189. IMAGING: CT of the chest shows severe emphysema. Improvement in the consolidation at the left lung base. Decrease in the wall thickness of the cavitary lesion in the left lower lobe. ASSESSMENT AND PLAN: 1. Pneumonia. The CT done today shows improvement in the patient's pneumonia. Will continue on cefepime and bronchodilator therapy. 2. Acute chronic obstructive pulmonary disease exacerbation, slowly improving. Continue on Solu- Medrol and bronchodilator therapy. 3. Severe emphysema. Aware. 4. Hyperglycemia. This is likely steroid-induced. We will check a hemoglobin A1c and place the patient on Accu-Cheks and sliding-scale insulin while on high-dose steroid therapy. 5. Deep vein thrombosis prophylaxis. Continue on Lovenox. 6. Will consult Physical Therapy. cc: Edith Aquino MD
[2017-05-09] MEDS: PRILOSEC PO SCH (06:16)
[2017-05-09] MEDS: PULMICORT INH SCH ×2 (07:23→19:40)
[2017-05-09 07:25] LABS: HEMATOCRIT 35.4 % (42.0-52.0); HEMOGLOBIN 10.8 g/dL (14.0-18.0); IMM GRAN# 0.06 X1000 (0.0-0.04); IMM GRAN% 0.3 % (0.0-0.5); LYMPH# 0.61 X1000 (1.2-3.4); LYMPH% 2.7 % (20.5-51.1); MANUAL DIFF NEEDED? YES; MCH 27.9 PG (27-31); MCHC 30.5 g/dL (33-37); MCV 91.5 FL (81-99); MONO# 0.32 X1000 (0.11-0.59); MONO% 1.4 % (1.7-9.3); MPV 11.4 FL (7.4-10.4); NEUT% 95.6 % (42.2-75.2); PLT 214 X1000 (130-400); RBC 3.87 XMIL (4.7-6.1)
[2017-05-09 07:46] LABS: ALBUMIN 3.8 g/dL (3.5-5.0); CALCIUM 8.8 mg/dL (8.8-10.2); POTASSIUM 4.7 mmol/L (3.5-5.1); TOTAL BILIRUBIN 0.16 mg/dL (0.20-1.00); TOTAL PROTEIN 6.9 g/dL (6.3-8.3)
[2017-05-09 07:49] LABS: BANDS 6 % (0-1); HYPOCHROM 1+; LYMPHS 2 % (21-51); MONO 2 % (1-9)
[2017-05-09] MEDS: MIRALAX PO SCH ×2 (09:05→20:53)
[2017-05-09] MEDS: MOBIC PO SCH (09:06)
[2017-05-09] MEDS: NORCO-10 PO SCH ×4 (09:06→20:53)
[2017-05-09] MEDS: MAXIPIME 1 GM in NS 50 ML IV SCH (09:07)
[2017-05-09] MEDS: COLACE PO SCH ×2 (09:07→20:53)
[2017-05-09] MEDS: XANAX PO SCH ×2 (09:07→20:53)
[2017-05-09] MEDS ORDERED: ZOSYN 3.375 GM in NS 50 ML IV SCH (11:30)
[2017-05-09 12:05] LABS: ALLEN TEST NO; BE 2.8 mmoll (-3.0-3.0); BLOOD TYPE ARTERIAL; DRAW SITE R BRACHIAL; METHB 0.7 % (0.0-1.5); PO2(98.6) 93 mmHg (60-100); SAMPLE BLOOD; SAO2 98.1 % (95.0-100.0)
[2017-05-09 12:07] LABS: MODALITY CANNULA; PCO2(98.6) 62 mmHg (35-45)
[2017-05-09] MEDS: ASPIRIN EC PO SCH (12:37)
[2017-05-09] MEDS: 1/2 NS 1,000 ML IV SCH (12:55)
--- NOTE | 2017-05-09 14:07 | Diag Imaging Result Doc PS360 ---
EXAM: US RENAL 2 (RETROPER) COMPLETE HISTORY: joe TECHNIQUE: Renal ultrasound COMMENT: The right kidney is 10.6 x 5.2 x 5.6 cm and the left is 12.1 x 4.9 x 5.2 cm. There is what appears to be a cyst in the left mid to the anterior kidney measuring 1.5 cm in diameter. This was also apparently present on 09/18/2016 and on the previous study of 12/15/2015. There is no evidence of hydronephrosis. The urinary bladder is not distended. The right-sided the renal cyst which was demonstrated on the previous examination of 12/15/2015 is not demonstrated. The renal cortex particularly on the right side is slightly hyperechoic. IMPRESSION: Possibility of medical renal disease cannot be excluded. No evidence of obstructive uropathy. Electronically signed by Lauri Fowler 05/09/2017 2:05 PM
--- NOTE | 2017-05-09 16:13 | CONSULTATION ---
DATE OF CONSULTATION: 05/09/2017 CONCLUSION: The patient has developed pneumonia superimposed on severe COPD. RECOMMENDATIONS: I have discontinued Zosyn and increased cefepime to a dose of 2 g IV every 12 hours. DISCUSSION: The patient was somewhat of a vague historian. I am uncertain as to how accurate he was on some of his answers. The patient says approximately 7 days ago he had increasing shortness of breath, a cough which was productive of white sputum. He has not been having any more sputum production since he has been in the hospital. His CT scan shows bibasilar consolidation and a left lower lobe cavitary lesion. Renal ultrasound shows evidence of medical renal disease. CBC shows a white count of 22,710, hemoglobin 10.8, and platelet count 214,000. The patient's blood gases show a pH of 7.3, a PO2 of 93, and a pCO2 of 62. Creatinine is 1.8. GFR is 37. Sputum when the patient was first admitted is growing a gram-negative emili. PAST MEDICAL HISTORY/REVIEW OF SYSTEMS: Eyes and ears: Patient has decreased hearing. He says his vision is okay. Neck: No stiffness. Respiratory: Patient has shortness of breath, especially with exertion. He has not been coughing up until the past 7 days when he started and produced white sputum. Cardiac: No chest pain or palpitations. GI: No nausea, vomiting, or diarrhea. : No dysuria or flank pain. Bones, joints, muscles: The patient says he hurts in all of his joints because he has arthritis. Integument: No rashes. Endocrine: He does not have diabetes or thyroid disease. Neurologic: He is not having headaches or syncopal episodes. He is not having any unilateral loss of strength or sensation. PREVIOUS HOSPITALIZATIONS AND OPERATIONS: He has had placement of coronary artery stent. He has also been admitted multiple times for COPD. MEDICAL DISEASES: Positive for COPD, coronary artery disease, hyperlipidemia and osteoarthritis. INFECTIOUS DISEASE HISTORY: Positive for pneumonia. Negative for UTI. FAMILY HISTORY: Patient told me he could not think of any illness that any of his family members had. SOCIAL HISTORY: [place] He [place] smoking cigarettes in 1981. He does not drink alcoholic beverages or abuse drugs. ALLERGIES: He is allergic to ciprofloxacin and doxycycline. HOME MEDICATIONS: 1. Hydrocodone. 2. Pravachol. 3. Xanax. 4. Mobic. 5. Combivent inhaler. 6. Pulmicort. 7. Aspirin. 8. Albuterol. PHYSICAL EXAMINATION: Vital Signs: Temperature is 98.3 degrees pulse 89, respirations 14, blood pressure 130/57. General: This is an ill-appearing, elderly male. He is in no acute distress. Head, eyes, ears, nose, and throat: He has decreased hearing. He can see near objects. He has dentures. He does not appear to have any lower teeth. Neck: No meningismus. Thorax: Increased AP diameter of the chest. Lungs: Bilateral rhonchi. Cardiovascular: Heart rate was regular. He has edema of the legs and diminished peripheral pulses. Abdomen: Soft and nontender. Neurologic: Patient is awake. He can move his extremities. There is no tremor. His sensation was intact to touch. His memory, as regarding his medical history, was decreased. Integument: Patient has tattoos, but no rash. Thank you for the consult. cc: Bob Fenton MD
[2017-05-09 19:18] LABS: URINE MICRO REVIEW NEEDED? NO; URINE SOURCE CLEAN CATCH
[2017-05-09 19:22] LABS: BILIRUBIN URINE NEGATIVE (NEGATIVE); BLOOD URINE NEGATIVE (NEGATIVE); COLOR YELLOW; GLUCOSE URINE NEGATIVE (NEGATIVE); LEUKOCYTES URINE NEGATIVE (NEGATIVE); NITRITE URINE NEGATIVE (NEGATIVE); PROTEIN URINE NEGATIVE (NEGATIVE); SP GRAVITY URINE 1.009; TURBIDITY URINE CLEAR (CLEAR); UROBILINOGEN URINE NORMAL (NORMAL)
[2017-05-09 19:23] LABS: UR EPITHELIAL CELLS <10 /HPF (<10); URINE BACTERIA NEGATIVE /HPF; URINE RBC <10 /HPF (<10); URINE WBC <10 /HPF (<10)
[2017-05-09 19:45] LABS: UR CREAT RANDOM 40.6 mg/dL (14-26); UR PROT RANDOM 7.4 mg/dL; UR SODIUM < 10 mmoll
[2017-05-09] MEDS: PRAVACHOL PO SCH (20:53)
[2017-05-09] MEDS: LOVENOX SUBQ SCH (20:53)
--- NOTE | 2017-05-09 21:02 | PROGRESS NOTE ---
DATE: 05/09/2017 SUBJECTIVE: The patient is agitated because he is hungry. He has no other complaints. OBJECTIVE: Vital Signs: Temperature 98.1 degrees, blood pressure 136/58, heart rate 78, respirations 18, O2 saturations 100% on 4 L nasal cannula. General: This is an elderly male, lying in bed, in no acute distress. Heart: S1, S2 normal. Lungs: Equal air entry bilaterally. No crackles, no rales. Abdomen: Positive bowel sounds. Soft, nontender, nondistended. Extremities: No edema. No cyanosis. No calf tenderness. Neurologic: The patient is alert oriented x 4. LABS: White blood cell count 22, hemoglobin 10, hematocrit 35, platelets 214,000. ABG pH of 7.3, pCO2 62, PO2 93, bicarb 27. Sodium 140, potassium 4.7, chloride 97, CO2 30, BUN 48, creatinine 1.8, glucose 140. AST 87, ALT 92, alkaline phosphatase 60. UA negative. ASSESSMENT AND PLAN: 1. Pneumonia. Infectious Disease has been consulted and the patient's antibiotics have been adjusted. Continue with bronchodilator therapy. 2. Chronic obstructive pulmonary disease exacerbation. Continue on IV steroids, bronchodilator therapy and BiPAP. Further recommendations to follow from the timber cruiser. 3. Acute kidney injury. Will check urine studies and discontinue the Mobic at this time and also start the patient on IV fluids. If the patient's renal function continues to worsen will consult the central office trouble shooter tomorrow. 4. Severe emphysema. Aware. 5. Elevated liver function tests. Will check a hepatitis profile as well as an abdominal ultrasound. 6. Leukocytosis. This may be a combination of the patient's pneumonia and high-dose steroid therapy. We will continue to monitor for improvement. 7. Anemia. We will monitor the patient's hemoglobin and hematocrit closely. 8. Steroid-induced hyperglycemia. Continue on sliding scale insulin. cc: Edith Aquino MD
[2017-05-09] MEDS: MAXIPIME 2 GM in NS 100 ML IV SCH (21:07)
[2017-05-09] MEDS: HUMULIN R SUBQ SCH (21:08)
[2017-05-10] MEDS: DUONEB (A & A) INH SCH ×6 (03:00→23:05)
--- NOTE | 2017-05-10 03:52 | CONSULTATION ---
DATE OF CONSULTATION: 05/09/2017 REFERRING PHYSICIAN: Dr. Aquino. CHIEF COMPLAINT: Shortness of breath. HISTORY OF PRESENT ILLNESS: This is a 71-year-old male with past medical history of COPD, CAD, hyperlipidemia and osteoarthritis that presented to the hospital with complaint of a 7-day history of increased shortness of breath with a productive cough. He was admitted to the hospital for evaluation of his pneumonia and COPD exacerbation as well as acute kidney injury and elevated LFTs. He denies any chest pain, abdominal pain, nausea, vomiting, or diarrhea. REVIEW OF SYSTEMS: A 10-point review of systems was conducted. Pertinent on HPI, otherwise noncontributory. PAST MEDICAL HISTORY: As mentioned in HPI, otherwise noncontributory. PAST SURGICAL HISTORY: Coronary stent placement. ALLERGIES: Cipro and doxycycline. FAMILY HISTORY: Noncontributory. SOCIAL HISTORY: The patient is a former smoker but stopped in the 80s, denies the use of alcohol and illicit drugs. ACTIVE MEDICATIONS: Tylenol, DuoNeb, Xanax, aspirin, Pulmicort, cefepime, Colace, Lovenox, [place], Humulin-R, Solu-Medrol, Prilosec, Zofran, MiraLAX, Pravachol. PHYSICAL EXAMINATION: Vital Signs: Temperature 98.1, heart rate 78, respiratory 18, blood pressure 136/58, oxygen saturation 98%. General: Awake, alert, no acute distress noted. HEENT: Normocephalic, atraumatic. PERRL. Cardiovascular: Regular rate and rhythm, S1-S2 present. Chest: Reduced entry. Abdomen: Soft, nontender. Bowel sounds present all quadrants. Extremities: Distal pulses diminished, 1+ pedal edema noted. Neuro: No focal deficits. LABS AND INVESTIGATIONS: WBC 22.7, RBC 3.7, hemoglobin 10.8, hematocrit 35.4, platelet count 214,000. Sodium 140, potassium 4.7, chloride 97, CO2 30, anion gap 13, BUN 48, creatinine 1.8, GFR 37, glucose 140. Blood gas reveals a pH 7.3, pCO2 of 62, PO2 of 93, HC03 27.1, oxygen saturation 98%. ASSESSMENT AND PLAN: This is a 71-year-old male with past medical history mentioned in history of present illness that presented to the hospital with complaints of a 7-day history of shortness of breath with a productive cough. He was admitted for his chronic obstructive pulmonary disease exacerbation as well as a pneumonia and acute kidney injury. Will monitor and hold the use of nephrotoxic agents. Continue with IV steroids, inhaled bronchodilators, BiPAP therapy, supplemental oxygen as needed, IV antibiotics and further recommendations pending diagnostic studies. Thank you for the courtesy of consult. Dictated by QING Hoover for Alexei Navarro MD cc: QING Hoover MD
[2017-05-10 05:08] LABS: ALLEN TEST YES; BE 7.5 mmoll (-3.0-3.0); BLOOD TYPE ARTERIAL; DRAW SITE R RADIAL; METHB 1.3 % (0.0-1.5); O2(CT) 4.6 mL/dL (15.0-23.0); PO2(98.6) 73 mmHg (60-100); SAMPLE BLOOD; SAO2 98.6 % (95.0-100.0); THB 3.3 g/dL (11.5-17.4); pH(98.6) 7.34 (7.35-7.45)
[2017-05-10 05:09] LABS: MODALITY CANNULA; PCO2(98.6) 62 mmHg (35-45)
[2017-05-10] MEDS: 1/2 NS 1,000 ML IV SCH ×5 (05:22→23:17)
[2017-05-10] MEDS: HUMULIN R SUBQ SCH ×4 (06:29→23:05)
[2017-05-10] MEDS: PRILOSEC PO SCH (06:30)
[2017-05-10 07:22] LABS: HEMOGLOBIN A1C 4.9 % (4.8-6.0)
[2017-05-10 07:39] LABS: HEMATOCRIT 31.5 % (42.0-52.0); HEMOGLOBIN 9.6 g/dL (14.0-18.0); IMM GRAN# 0.05 X1000 (0.0-0.04); IMM GRAN% 0.3 % (0.0-0.5); LYMPH# 0.52 X1000 (1.2-3.4); LYMPH% 2.7 % (20.5-51.1); MANUAL DIFF NEEDED? YES; MCH 27.8 PG (27-31); MCHC 30.5 g/dL (33-37); MCV 91.3 FL (81-99); MONO# 0.57 X1000 (0.11-0.59); MONO% 2.9 % (1.7-9.3); MPV 11.8 FL (7.4-10.4); NEUT% 94.1 % (42.2-75.2); PLT 195 X1000 (130-400); RBC 3.45 XMIL (4.7-6.1)
[2017-05-10 07:53] LABS: CALCIUM 8.6 mg/dL (8.8-10.2); POTASSIUM 5.1 mmol/L (3.5-5.1); TOTAL PROTEIN 5.7 g/dL (6.3-8.3)
[2017-05-10 07:54] LABS: TOTAL BILIRUBIN 0.13 mg/dL (0.20-1.00)
--- NOTE | 2017-05-10 07:55 | Diag Imaging Result Doc PS360 ---
EXAM: US ABDOMEN-COMPLETE INDICATION: elevated liver function studies COMPARISON: Renal ultrasound dated 05/09/2017 FINDINGS: The gallbladder appears normal with no stones, wall thickening, or pericholecystic fluid. The common bile duct is normal in diameter. Sonographic Hicks's sign was reported to be negative. The liver is grossly unremarkable. Portal venous flow is hepatopedal. The visualized pancreas is unremarkable. The aorta and IVC are grossly unremarkable. The spleen is unremarkable. The 1.5 cm cystic appearing lesion arising from the left kidney seen on the previous study is again noted. The kidneys are grossly unremarkable, otherwise. IMPRESSION: Essentially unremarkable abdominal ultrasound. Electronically signed by Maximino Miranda 05/10/2017 7:53 AM
[2017-05-10 08:02] LABS: BANDS 2 % (0-1); HYPOCHROM 1+; LYMPHS 2 % (21-51)
[2017-05-10] MEDS: PULMICORT INH SCH ×2 (08:21→19:15)
[2017-05-10] MEDS: ASPIRIN EC PO SCH (08:34)
[2017-05-10] MEDS: MIRALAX PO SCH ×2 (08:34→23:01)
[2017-05-10] MEDS: COLACE PO SCH ×2 (08:35→23:01)
[2017-05-10] MEDS: SOLU-MEDROL IV SCH ×2 (08:35→23:03)
[2017-05-10] MEDS: XANAX PO SCH ×2 (08:35→23:02)
[2017-05-10] MEDS: NORCO-10 PO SCH ×4 (08:35→23:01)
--- NOTE | 2017-05-10 08:37 | Diag Imaging Result Doc PS360 ---
EXAM: CHEST-2 VIEWS INDICATION: pneumonia TECHNIQUE: 3 views COMPARISON: 05/07/2017 FINDINGS: COPD changes are again noted. The basilar consolidations seen previously appear to have improved to near resolution. No new consolidation is appreciated. Cardiac silhouette is stable. IMPRESSION: Interval improvement of bibasilar consolidations. Electronically signed by Maximino Miranda 05/10/2017 8:35 AM
[2017-05-10] MEDS: MAXIPIME 2 GM in NS 100 ML IV SCH ×2 (09:08→23:01)
--- NOTE | 2017-05-10 13:51 | PROGRESS NOTE ---
DATE: 05/10/2017 SUBJECTIVE: The patient is resting comfortably in bed. No acute events noted overnight. He states that his breathing is much better today. OBJECTIVE: Vital Signs: Temperature 97.6, blood pressure 131/60, heart rate 78 , respirations 20, O2 saturations 95% on 4 L nasal cannula. General: This is a chronically ill- appearing, elderly male, sitting in bed, in no acute distress. Head: Normocephalic, atraumatic. Heart: S1, S2 normal. Regular rate and rhythm. Lungs: Equal air entry bilaterally. Mild rhonchi at the bases. No wheezing. Abdomen: Positive bowel sounds. Soft, nontender, nondistended. Extremities: No edema. No cyanosis. Neurologic: The patient is alert and oriented x3. LABS: White blood cell count 19, hemoglobin 9.6, hematocrit 31, platelets 195. ABG: pH of 7.34, pCO2 of 62, pO2 of 73. Bicarb 30. Sodium 137, potassium 5.1, chloride 98, CO2 of 29, BUN 55, creatinine 1.5, glucose 138. Calcium 8.6. A1c 4.9. ASSESSMENT AND PLAN: 1. Pneumonia. Continue on IV antibiotic therapy. 2. Chronic obstructive pulmonary disease exacerbation. Continue with bronchodilator therapy and IV steroids. 3. Acute kidney injury. Improving. Will decrease the patient's IV fluids to 75 mL an hour. 4. Steroid-induced hyperglycemia. We will continue with sliding scale insulin coverage. 5. Elevated liver function tests. The abdominal ultrasound was noted to be unremarkable and the hepatitis profile is currently pending. We will avoid using any hepatotoxic medications at this time. We will continue to monitor the patient's liver function tests closely. 6. Leukocytosis. Monitor for improvement. Continue on IV antibiotics. 7. Severe emphysema. Aware. 8. DVT prophylaxis. Continue on heparin. cc: MD NEGRITO Knight
--- NOTE | 2017-05-10 16:19 | PROGRESS NOTE ---
DATE: 05/10/2017 PRESENT ILLNESS: The patient has developed pneumonia superimposed on severe COPD. MEDICATIONS: The patient is on day one of cefepime 2 g IV every 12 hours. PHYSICAL EXAMINATION: Vital Signs: Temperature is 97.6 degrees, pulse 74, respirations 16, blood pressure 131/60. General: This is a chronically ill-appearing, elderly male. He is in no acute distress. Lungs: Clear to auscultation. Cardiovascular: Heart rate was regular. Abdomen: Soft and nontender. LAB AND X-RAY: The chest x-ray shows improvement in the bibasilar consolidations. Abdominal ultrasound was read as unremarkable. Sputum is growing a gram-negative emili which has not yet been identified. Creatinine is 1.5. GFR is 46. Blood gases show a pH of 7.37, PO2 of 73, and a pCO2 of 62. The patient's CBC shows a white count of 19,390, hemoglobin 9.6, and platelet count 195,000. ASSESSMENT AND PLAN: The patient has improving pneumonia. His white count is still high however I think this is due to the fact that the patient is on high dose of steroids. My plan is to continue the current antibiotics. I think once the identity is known we will probably be able to get the patient home and hopefully that will be on an oral antibiotic. COMORBIDITIES: He has severe COPD, and he has a history of having pneumonia in the past. cc: Bob Fenton MD
[2017-05-10] MEDS: PRAVACHOL PO SCH (23:01)
[2017-05-10] MEDS: LOVENOX SUBQ SCH (23:04)
[2017-05-11] MEDS: DUONEB (A & A) INH SCH ×6 (03:05→22:36)
[2017-05-11] MEDS: HUMULIN R SUBQ SCH ×4 (06:16→20:52)
[2017-05-11] MEDS: PRILOSEC PO SCH (06:17)
[2017-05-11 07:02] LABS: HEMATOCRIT 33.6 % (42.0-52.0); HEMOGLOBIN 10.4 g/dL (14.0-18.0); IMM GRAN# 0.07 X1000 (0.0-0.04); IMM GRAN% 0.4 % (0.0-0.5); LYMPH# 0.46 X1000 (1.2-3.4); LYMPH% 2.9 % (20.5-51.1); MANUAL DIFF NEEDED? YES; MCH 28.1 PG (27-31); MCV 90.8 FL (81-99); MONO# 0.34 X1000 (0.11-0.59); MONO% 2.2 % (1.7-9.3); MPV 11.4 FL (7.4-10.4); NEUT% 94.5 % (42.2-75.2); PLT 215 X1000 (130-400)
[2017-05-11 07:25] LABS: ALBUMIN 3.4 g/dL (3.5-5.0); CALCIUM 8.3 mg/dL (8.8-10.2); POTASSIUM 5.4 mmol/L (3.5-5.1); TOTAL BILIRUBIN 0.17 mg/dL (0.20-1.00); TOTAL PROTEIN 6.7 g/dL (6.3-8.3)
[2017-05-11 07:27] LABS: LYMPHS 2 % (21-51)
[2017-05-11] MEDS: PULMICORT INH SCH ×2 (07:33→19:31)
[2017-05-11] MEDS: NORCO-10 PO SCH ×4 (08:12→20:15)
[2017-05-11] MEDS: MAXIPIME 2 GM in NS 100 ML IV SCH ×2 (08:12→20:15)
[2017-05-11] MEDS: ASPIRIN EC PO SCH (08:13)
[2017-05-11] MEDS: MIRALAX PO SCH ×3 (08:13→20:15)
[2017-05-11] MEDS: SOLU-MEDROL IV SCH ×2 (08:13→20:15)
[2017-05-11] MEDS: COLACE PO SCH ×2 (08:13→20:15)
[2017-05-11] MEDS: XANAX PO SCH ×2 (08:13→20:15)
[2017-05-11 12:41] LABS: HEPATITIS PROFILE ACUTE SEE COMMENTS
--- NOTE | 2017-05-11 17:02 | PROGRESS NOTE ---
DATE: 05/11/2017 SUBJECTIVE: The patient is sitting up eating breakfast. He states that he feels a lot better. No acute events noted overnight. OBJECTIVE: Vital Signs: Temperature 97.8 degrees, blood pressure 131/61, heart rate 86, respirations 20, O2 saturations 94% on 4 L nasal cannula. General: This is an elderly male, sitting up at the edge of the bed in no acute distress. Head: Normocephalic, atraumatic. Heart: S1, S2. Normal. Regular rate and rhythm. Lungs: Equal air entry bilaterally. No crackles, no rales. Abdomen: Positive bowel sounds. Soft, nontender, nondistended. Extremities: No edema. No cyanosis. No calf tenderness. Neurological: The patient is alert and oriented x4. LABS: White blood cell count 15.7, hemoglobin 10, hematocrit 33, platelets 215. Sodium 137, potassium 5.4, chloride 99, CO2 20, BUN 43, creatinine 1.4 and glucose 149. ASSESSMENT AND PLAN: 1. Pneumonia. Continue on the current antibiotic regimen. 2. Chronic obstructive pulmonary disease exacerbation. Improved. Continue on bronchodilator therapy and on Solu-Medrol. 3. Acute kidney injury. Improved. 4. Steroid-induced hyperglycemia. Continue on sliding scale insulin. 5. Hepatitis C. Aware. 6. Leukocytosis, improving. Continue on intravenous antibiotic therapy. 7. Severe emphysema. Aware. 8. Deep vein thrombosis prophylaxis. Continue on heparin. cc: Edith Aquino MD
--- NOTE | 2017-05-11 17:20 | PROGRESS NOTE ---
DATE: 05/11/2017 PRESENT ILLNESS: The patient has a gram-negative emili pneumonia. The organism has not been definitely identified yet. He has severe underlying COPD. Today also the patient told me that his left knee was hurting him, especially when he walked on it. MEDICATIONS: This is day 2 of Cefepime intravenously and in a dose of 2 g IV every 12 hours. PHYSICAL EXAMINATION: Vital Signs: Temperature is 97.8 degrees, pulse 97, respirations 15, blood pressure 131/61. General: This is a chronically ill-appearing, elderly male. He is in no acute distress. Lungs: Clear to auscultation. Cardiovascular: Regular heart rate. Abdomen: Is soft and nontender. Extremities: The patient's left knee is not swollen. I was able to passively move it. He did complain of some pain with the passive movement of his knee. LABORATORY AND X-RAY: There is no new lab today. The patient's CBC showed a white count of 15,700, hemoglobin 10.4, and platelet count 215,000. It should be noted the patient is on a high dose of Solu-Medrol, namely 40 mg every 12 hours and this may be causing some or most of the patient's leukocytosis. ASSESSMENT AND PLAN: The patient has pneumonia. I am going to continue with his current antibiotics pending the results of the sputum culture. I have ordered an x-ray for tomorrow of the patient's chest. As regarding the pain in his knee, I went ahead and ordered an x-ray of his knee. The patient's main comorbidity is that he has very severe COPD which predisposes him to get pneumonia. The patient appears to have osteoarthritis and the pain in his knee may just be a flare up of that. cc: Bob Fenton MD
[2017-05-11] MEDS: PRAVACHOL PO SCH (20:15)
[2017-05-11] MEDS: LOVENOX SUBQ SCH (20:15)
[2017-05-12] MEDS: DUONEB (A & A) INH SCH ×6 (03:24→23:17)
[2017-05-12] MEDS: HUMULIN R SUBQ SCH ×3 (06:03→17:44)
[2017-05-12] MEDS: PRILOSEC PO SCH (06:31)
[2017-05-12 06:44] LABS: MANUAL DIFF NEEDED? NO
[2017-05-12 06:46] LABS: HEMOGLOBIN 10.7 g/dL (14.0-18.0); IMM GRAN% 0.9 % (0.0-0.5); LYMPH# 0.92 X1000 (1.2-3.4); LYMPH% 7.9 % (20.5-51.1); MCH 27.9 PG (27-31); MCHC 30.6 g/dL (33-37); MCV 91.1 FL (81-99); MONO# 0.83 X1000 (0.11-0.59); MONO% 7.1 % (1.7-9.3); MPV 10.7 FL (7.4-10.4); NEUT% 84.1 % (42.2-75.2); PLT 222 X1000 (130-400); RBC 3.84 XMIL (4.7-6.1)
[2017-05-12 07:28] LABS: ALBUMIN 3.8 g/dL (3.5-5.0); CALCIUM 9.5 mg/dL (8.8-10.2); TOTAL BILIRUBIN 0.16 mg/dL (0.20-1.00); TOTAL PROTEIN 6.9 g/dL (6.3-8.3)
[2017-05-12 07:39] LABS: POTASSIUM 5.9 mmol/L (3.5-5.1)
[2017-05-12] MEDS: PULMICORT INH SCH ×2 (07:41→18:53)
--- NOTE | 2017-05-12 07:43 | Diag Imaging Result Doc PS360 ---
EXAM: KNEE 3 VIEWS LEFT HISTORY: L KJ pain TECHNIQUE: Three views COMPARISON: 02/12/2015 FINDINGS: There is moderate medial joint space narrowing. There is bone spurring to the femoral condyle and tibial plateau. There is also patellofemoral joint space narrowing and bone spurring. IMPRESSION: Moderate to prominent arthritic changes with slight progression compared the prior study. Electronically signed by lAy Castañeda 05/12/2017 7:40 AM
--- NOTE | 2017-05-12 07:44 | Diag Imaging Result Doc PS360 ---
EXAM: CHEST-2 VIEWS HISTORY: pneumonia TECHNIQUE: Two views COMPARISON: 05/10/2017 FINDINGS: The lungs are hyperexpanded. The heart is not enlarged.Pulmonary vessels are small. No consolidation of the current exam. Likely minimal scarring or atelectasis in the left base. No pleural effusions. IMPRESSION: 1.Emphysema 2.No consolidation. Likely minimal atelectasis or scarring in the left base Electronically signed by Aly Castañeda 05/12/2017 7:42 AM
[2017-05-12] MEDS ORDERED: SODIUM BICARBONATE 8.4% IV PUSH ONE (07:53)
[2017-05-12] MEDS ORDERED: ALBUTEROL 0.5% INH CONC FOR HYPERKALEMIA INH ONE (07:53)
[2017-05-12] MEDS ORDERED: D50W SYRINGE IV ONE (07:55)
[2017-05-12] MEDS ORDERED: HUMULIN R IV ONE (07:55)
[2017-05-12] MEDS: XANAX PO SCH ×2 (08:04→20:30)
[2017-05-12] MEDS: SOLU-MEDROL IV SCH (08:05)
[2017-05-12] MEDS: NORCO-10 PO SCH (08:05)
[2017-05-12] MEDS: MAXIPIME 2 GM in NS 100 ML IV SCH (08:05)
[2017-05-12] MEDS: ASPIRIN EC PO SCH (08:05)
[2017-05-12] MEDS: COLACE PO SCH ×2 (08:05→20:31)
[2017-05-12] MEDS: MIRALAX PO SCH ×2 (08:06→20:27)
[2017-05-12] MEDS: PERCOCET-10 PO PRN ×2 (13:40→20:29)
[2017-05-12] MEDS: PRAVACHOL PO SCH (20:30)
[2017-05-12] MEDS: SEPTRA DS PO SCH (20:30)
[2017-05-12] MEDS: LOVENOX SUBQ SCH (20:32)
[2017-05-13] MEDS: HUMULIN R SUBQ SCH ×3 (03:51→14:28)
[2017-05-13] MEDS: DUONEB (A & A) INH SCH ×3 (03:52→11:04)
[2017-05-13] MEDS: PERCOCET-10 PO PRN (04:25)
[2017-05-13 06:18] LABS: MANUAL DIFF NEEDED? NO
[2017-05-13 06:24] LABS: BASO% 0.2 % (0.0-0.8); EOS# 0.16 X1000 (0.0-0.7); EOS% 1.5 % (0.0-10.0); HEMATOCRIT 33.5 % (42.0-52.0); HEMOGLOBIN 10.2 g/dL (14.0-18.0); IMM GRAN# 0.18 X1000 (0.0-0.04); IMM GRAN% 1.7 % (0.0-0.5); LYMPH# 1.78 X1000 (1.2-3.4); LYMPH% 16.8 % (20.5-51.1); MCH 27.9 PG (27-31); MCHC 30.4 g/dL (33-37); MCV 91.5 FL (81-99); MONO# 1.26 X1000 (0.11-0.59); MONO% 11.9 % (1.7-9.3); MPV 10.9 FL (7.4-10.4); NEUT% 67.9 % (42.2-75.2); PLT 212 X1000 (130-400); RBC 3.66 XMIL (4.7-6.1)
[2017-05-13] MEDS: PRILOSEC PO SCH (06:45)
[2017-05-13 06:46] LABS: ALBUMIN 3.4 g/dL (3.5-5.0); CALCIUM 9.5 mg/dL (8.8-10.2); POTASSIUM 5.3 mmol/L (3.5-5.1)
[2017-05-13] MEDS: PULMICORT INH SCH (07:20)
--- NOTE | 2017-05-13 07:38 | PROGRESS NOTE ---
DATE: 05/12/2017 SUBJECTIVE: The patient is resting comfortably in bed. He has no complaints. He states that his breathing has improved quite a bit since admission. OBJECTIVE: Vital Signs: Temperature 97.8 degrees, blood pressure 154/65, heart rate 107, respirations 20, O2 saturations 98% on 3 L nasal cannula. General: This is an elderly male, sitting at the edge of the bed, in no acute distress. Head: Normocephalic atraumatic. Heart: S1, S2. Normal. Regular rate and rhythm. Lungs: Equal entry bilaterally. No crackles. No rales. Abdomen: Positive bowel sounds. Soft, nontender, nondistended. Extremities: No edema. No cyanosis. No calf tenderness. Neurologic: The patient is alert and oriented x4. LABS: White blood cell count 11, hemoglobin 10, hematocrit 35, platelets 222,000. Sodium 141, potassium 5.9, chloride 100, CO2 31, BUN 37, creatinine 1.4, glucose 107. ASSESSMENT AND PLAN: 1. Pneumonia. This appears to have improved. The patient's sputum culture grew out Achromobacter. This was discussed with Dr. Fenton to his transition the patient to single- strength Bactrim which he will continue as outpatient. 2. Hyperkalemia. This was treated this morning. We will repeat the potassium tomorrow. 3. Chronic obstructive pulmonary disease. We will discontinue the Solu-Medrol and start the patient on prednisone to start tomorrow. 4. Chronic pain syndrome. Continue on Percocet. 5. Anxiety disorder. Continue on Xanax. 6. Hypertension. Controlled. Continue on the current antihypertensive regimen. 7. Hepatitis C. Aware. 8. Severe emphysema. Aware. 9. Deep vein thrombosis prophylaxis. Continue on heparin. 10. Disposition. The patient should be stable for discharge home tomorrow. cc: Edith Aquino MD
--- NOTE | 2017-05-13 07:40 | PROGRESS NOTE ---
DATE: 05/12/2017 PRESENT ILLNESS: The patient came in with pneumonia. His latest x-ray is clear, but the patient still is coughing and has some purulent sputum, so I think he has changed from pneumonia to a purulent bronchitis. MEDICATIONS: This is day 3 of cefepime. PHYSICAL EXAMINATION: Vital Signs: Temperature is 97.8 degrees, pulse 107, respirations 20, blood pressure 154/65. General: This is a somewhat ill-appearing, elderly male. Thorax: He has an increased AP diameter of his chest. Lungs: There are scattered rhonchi. Cardiovascular: Regular heart rate. Abdomen: Soft and nontender. Extremities: The patient has been complaining of pain in the left knee. On exam, the left knee is not swollen. LABORATORY AND X-RAY: The sputum culture came back growing Achromobacter. The patient's CBC shows white count is down to 11,650, hemoglobin is 10.7, and platelet count is 222,000. Creatinine is 1.4. The GFR is 50. Chest x-ray, as mentioned above, shows clear lung couch. The x-ray of the left knee shows progressive arthritis changes. ASSESSMENT AND PLAN: The patient's pneumonia has cleared on x-ray. Possibly there could be some pneumonia left on CT scan. He still is coughing up a purulent sputum, so I would say he now he has a purulent bronchitis. My plan is to stop the patient's cefepime, and start the patient on Septra. The dose I am going to use it is Septra single-strength, instead of the double-strength, so Septra single strength every 12 hours. I have sent a prescription electronically to [facility], which is the pharmacy the patient uses, for Septra single-strength p.o. every 12 hours for 10 days. As regarding followup on the patient, he wants to see his personal physician, Dr. Mckeon, in 1 week. COMORBIDITIES: Include COPD and he is elderly. As far as his knee goes, I think this is due to osteoarthritis. I am signing off the patient now. I am available to see him on a p.r.n. basis. cc: Bob Fenton MD
[2017-05-13 07:49] VITALS: BP 143/69
[2017-05-13] MEDS: COLACE PO SCH (08:51)
[2017-05-13] MEDS: SEPTRA DS PO SCH (08:51)
[2017-05-13] MEDS: ASPIRIN EC PO SCH (08:51)
[2017-05-13] MEDS: XANAX PO SCH (08:51)
[2017-05-13] MEDS: MIRALAX PO SCH (08:52)
[2017-05-13] MEDS ORDERED: PREDNISONE PO SCH (09:00)
[2017-05-13] MEDS ORDERED: NORCO-10 PO PRN (09:05)
--- NOTE | 2017-05-14 17:04 | DISCHARGE SUMMARY ---
ADMISSION DATE: 05/07/2017 DISCHARGE DATE: 05/13/2017 WINE MASTER: Dr. Navarro FINAL DISCHARGE DIAGNOSES: 1. Pneumonia. 2. Acute chronic obstructive pulmonary disease exacerbation. 3. Severe emphysema. 4. Tobacco dependence. 5. Acute kidney injury on chronic kidney disease. 6. Steroid-induced hyperglycemia. 7. Hepatitis C. 8. Hyperkalemia. 9. Anemia of chronic disease. CONSULTATIONS REQUESTED DURING THIS HOSPITAL STAY: 1. Pulmonary consultation with Dr. Navarro. 2. ID consultation with Dr. Bob Fenton. HOSPITAL COURSE: Mr. Byrne is a 71-year-old male, with a history of COPD, on chronic oxygen, and emphysema, who presented to the ER with a chief complaint of shortness of breath for about 3 days. On admission, the patient was noted to have pneumonia and be in a COPD exacerbation. The patient was admitted to the hospitalist service and started on broad-spectrum antibiotics, after cultures were obtained, and IV steroid therapy. Pulmonary Medicine and ID were consulted for further assistance. The patient was also noted to be in acute kidney injury on chronic kidney disease. The patient is on NSAID therapy as outpatient, and this was held during the hospital stay. Slowly, over the course of the hospitalization, the patient's respiratory status improved, and the patient reported improvement in his symptoms. The patient was counseled about smoking cessation. On the day of discharge, the patient was noted to have a white blood cell count 10.5, hemoglobin 10.2, and a hematocrit of 33.5. The patient's BUN was 31, with a creatinine of 1.3. The patient was back to his baseline level of home oxygen. The patient was transitioned to single-strength Bactrim. The patient is currently stable for discharge home. DISCHARGE MEDICATIONS: 1. Single-strength Bactrim, 1 tab oral every 12 hours. 2. Prednisone taper, use as directed. 3. Albuterol nebulizer treatments every 4 hours p.r.n. for shortness of breath. 4. Pravachol 40 mg p.o. at bedtime. 5. Combivent inhaler, 1 puff daily. 6. Aspirin 325 mg p.o. daily. 7. Pulmicort 0.25 mg inhaled twice a day. 8. Xanax 0.5 mg p.o. twice a day. 9. [place] 10/325, 1 tab oral 4 times a day. DISCHARGE DIET: Low-sodium diet. ACTIVITY: As tolerated. FOLLOWUP INSTRUCTION: The patient has been advised to follow up with Dr. Navarro in 3 weeks. cc: Edith Aquino MD
[2017-05-16 12:05] LABS: HCV BY PCR SEE COMMENTS; HCV CHARGE YES
== END 2017-05-13 15:36 | disposition home or self-care (01) ==
LOC: ED 12:57 → SUATTDRO 17:50 → 3N 17:50
PROVIDERS: ATTEND Internal Medicine